=== PATIENT | male | born 1950 | race Caucasian/White ===

== ENCOUNTER 2017-11-06 20:36 | Inpatient (IN) ==
--- NOTE | 2017-11-06 20:55 | Emergency Department Note ---
Disposition Clinical Impression: Atrial fibrillation Qualifiers: Atrial fibrillation type: unspecified Qualified Code(s): I48.91 - Unspecified atrial fibrillation Disposition: Still a Patient Condition: Fair Referrals: Bubba Fall MD [Primary Care Provider] - Arrhythmia/Palpitations HPI - General Stated Complaint: Palpitations Time Seen by Provider: 11/06/17 20:44 Source: patient, family Mode of arrival: wheelchair Limitations: no limitations Nursing Notes Reviewed: Yes Vital Signs Reviewed: Yes - History of Present Illness HPI Narrative: 67-year-old who comes in complaining of irregular heartbeat and palpitations. Patient states with his last 2 surgeries he has had A. fib. Patient takes sotalol. Normally is in sinus but he will go into A. fib. Pt Subjective Complaint: "heart racing", palpitations Onset (ago): Just [employer] Duration: constant Severity: moderate Context: occurred during rest Arrhythmia History: atrial fibrillation Associated symptoms: Reports: other (Diaphoretic and patient states he normally gets diaphoretic when he goes into A. fib.) - Related Data Home Medications Medication Instructions Recorded Confirmed Armodafinil [Nuvigil] 200 mg PO BID 02/14/16 07/30/16 Aspirin Enteric Coated [Aspirin EC] 325 mg PO DAILY 02/14/16 07/30/16 Buspirone HCl [Buspar] 10 mg PO DAILY 02/14/16 07/30/16 Calcium Carbonate/Vitamin D3 1 each PO DAILY 02/14/16 07/30/16 [Calcium 600 + Vit D Tablet] Cetirizine HCl [Zyrtec] 10 mg PO DAILY 02/14/16 07/30/16 Docusate [Colace] 100 mg PO BID 02/14/16 07/30/16 Hydroxychloroquine [Plaquenuil] 200 mg PO BID 02/14/16 07/30/16 Lisinopril [Zestril] 40 mg PO DAILY 02/14/16 07/30/16 Morphine Sulfate SR (12 HR) [MS 60 mg PO Q12HR 02/14/16 07/30/16 Contin] Multivitamin [One Daily Essential] 1 each PO DAILY 02/14/16 07/30/16 Omeprazole [PriLOSEC] 20 mg PO BID 02/14/16 07/30/16 OxyCODONE/APAP 10/325 [Percocet 1 each PO Q6HR PRN 02/14/16 07/30/16 10/325 MG] Polyethylene Glycol 3350 [MiraLAX] 17 gm PO DAILY PRN 02/14/16 07/30/16 Sotalol [Betapace] 80 mg PO Q12HR 02/14/16 07/30/16 Testosterone [Androgel] 4 appl TD DAILY 02/14/16 07/30/16 Tizanidine HCl 4 mg PO Q8H PRN 02/14/16 07/30/16 hydroCHLOROthiazide 25 mg PO DAILY 02/14/16 07/30/16 [Hydrochlorothiazide] Previous Rx's Medication Instructions Recorded OxyCODONE Immed Rel [Roxicodone 5 5 - 10 mg PO Q6HR PRN #30 tablet 02/14/16 MG] Allergies Allergy/AdvReac Type Severity Reaction Status Date / Time baclofen AdvReac Nausea Verified 11/06/17 21:00 All systems ED: reviewed and negative except as stated. Constitutional: Denies: fever, chills, weakness, weight change Eyes: Denies: eye pain, eye discharge, vision change ENT ED: Denies: ear pain, throat pain, dental pain, hearing loss, epistaxis, congestion, dysphagia Cardiovascular: Reports: palpitations. Denies: chest pain, dyspnea on exertion , edema, syncope Respiratory: Denies: cough, dyspnea, wheezes, hemoptysis, stridor Gastrointestinal: Denies: abdominal pain, nausea, vomiting, diarrhea, constipation, hematemesis, melena, hematochezia Genitourinary: Denies: urgency, dysuria, frequency, hematuria Musculoskeletal: Denies: back pain, neck pain, arthralgia, myalgia Integumentary: Denies: rash, abrasion, lesions Neurological: Denies: headache, weakness, numbness, paresthesias, confusion, abnormal gait, vertigo Psychiatric: Denies: anxiety, depression, suicidal thoughts, homicidal thoughts , auditory hallucinations, visual hallucinations Endocrine: Denies: fatigue Hematological/Lymphatic: Denies: easy bleeding, easy bruising Allergic/Immunologic: Denies: facial swelling, urticaria Past Medical History - Past Medical History Medical history: Reports: arthritis, atrial fibrillation, hypertension, thyroid disease Psychiatric history: Reports: anxiety, depression - Social History Smoking Status: Former smoker Smokeless Tobacco Status: No Alcohol use: Reports: none Drug use: Reports: none Physical Exam - General Limitations: no limitations General appearance: alert, in no apparent distress - Head Head exam: atraumatic, normocephalic, normal inspection - Eye Eye exam: Present: normal appearance, PERRL, EOMI - ENT ENT exam: normal exam, normal oropharynx, mucous membranes moist - Neck Neck exam: Present: normal inspection, full ROM, trachea midline - Chest Chest inspection: Present: normal inspection, symmetric chest wall rise - Respiratory Respiratory exam: Present: normal lung sounds bilaterally - Cardiovascular Cardiovascular exam: Present: tachycardia, irregular rhythm - Abdominal Exam Abdominal exam: Present: soft, Non-Tender. Absent: tenderness, distention, guarding, rebound, rigidity - Extremities Exam Extremities exam: Present: normal inspection, full ROM. Absent: tenderness, pedal edema - Expanded Lower Extremity Exam Neurovascular/Tendon exam: Absent: motor deficit, sensory deficit, tendon deficit Gait: observed and normal - Back Exam Back exam: Present: normal inspection, full ROM. Absent: tenderness - Neurological Exam Neurological exam: Present: alert, oriented X3 - Psychiatric Psychiatric exam: Present: normal affect, normal mood - Skin Skin exam: Present: warm, dry, intact, normal color Course Vital Signs O2 Sat by Pulse Oximetry 99 11/06/17 20:40 Temperature 97 F L 11/06/17 20:57 Pulse Rate 147 11/06/17 20:57 Respiratory Rate 22 11/06/17 20:57 Blood Pressure 133/108 11/06/17 20:57 O2 Sat by Pulse Oximetry 99 11/06/17 20:57 Oxygen Delivery Oxygen Delivery Room Air Arrhythmia/Palpitations - Lab Data Lab results reviewed: Yes I reviewed the patient's lab results. Result diagrams: 11/06/17 20:50 11/06/17 20:50 Lab Results 11/06/17 11/06/17 11/06/17 Range/Units 20:50 20:50 20:50 WBC 8.9 (4.3-11.1) K/mcL RBC 6.35 H (4.19-5.50) M/mcL Hgb 19.3 H (12.9-16.9) g/dL Hct 56.3 H (37.5-50.1) % MCV 88.7 (83.0-100.0) fL MCH 30.4 (28.0-33.3) pg MCHC 34.3 (31.6-35.5) g/dL RDW 14.5 (11.5-14.5) % Plt Count 263 (140-400) K/mcL MPV 9.1 L (9.4-12.4) fL Immature Gran % 0.2 (0-4) % Seg Neutrophils % 47.9 % Lymphocytes % 39.8 % Monocytes % 9.7 % Eosinophils % 1.6 % Basophils % 0.8 % Neutrophils # 4.3 (1.6-8.9) K/mcL Lymphocytes # 3.5 (0.6-4.6) K/mcL Monocytes # 0.9 (0.0-1.3) K/mcL Eosinophils # 0.1 (0.0-0.6) K/mcL Basophils # 0.1 (0.0-0.2) K/mcL PT (9.4-12.1) Seconds INR APTT (26.0-36.0) Seconds Est GFR ( Amer) Cancelled Est GFR (Non-Af Amer) Cancelled BUN/Creatinine Ratio Cancelled Calculated Osmolality Cancelled Troponin I < 0.03 (< 0.04) ng/mL TSH 6.505 H (0.340-5.600) mcIU/mL Specimen Rejected Miscellaneous 11/06/17 Range/Units 21:30 WBC (4.3-11.1) K/mcL RBC (4.19-5.50) M/mcL Hgb (12.9-16.9) g/dL Hct (37.5-50.1) % MCV (83.0-100.0) fL MCH (28.0-33.3) pg MCHC (31.6-35.5) g/dL RDW (11.5-14.5) % Plt Count (140-400) K/mcL MPV (9.4-12.4) fL Immature Gran % (0-4) % Seg Neutrophils % % Lymphocytes % % Monocytes % % Eosinophils % % Basophils % % Neutrophils # (1.6-8.9) K/mcL Lymphocytes # (0.6-4.6) K/mcL Monocytes # (0.0-1.3) K/mcL Eosinophils # (0.0-0.6) K/mcL Basophils # (0.0-0.2) K/mcL PT 10.9 (9.4-12.1) Seconds INR 1.0 APTT 29.1 (26.0-36.0) Seconds Est GFR ( Amer) Est GFR (Non-Af Amer) BUN/Creatinine Ratio Calculated Osmolality Troponin I (< 0.04) ng/mL TSH (0.340-5.600) mcIU/mL Specimen Rejected - EKG Data EKG attestation: Yes I reviewed and interpreted this EKG. Rate: tachycardia Rhythm: A.Fib Interpretation: no acute changes S.B.ANoemiR. - S.B.A.RNoemi Recommendation: Recommendation based on pending studies, treatments, or consults S.B.A.RNoemi Report Given to: Calista Colon Repor Time: 22:01
[2017-11-06 21:05] LABS: Basophils # 0.1 K/mcL (0.0-0.2); Basophils % 0.8 %; Eosinophils # 0.1 K/mcL (0.0-0.6); Eosinophils % 1.6 %; Hemoglobin 19.3 g/dL (12.9-16.9); Immature Granulocytes % 0.2 % (0-4); Lymphocytes # 3.5 K/mcL (0.6-4.6); Lymphocytes % 39.8 %; Mean Corpuscular HGB Conc 34.3 g/dL (31.6-35.5); Mean Corpuscular Hemoglobin 30.4 pg (28.0-33.3); Mean Corpuscular Volume 88.7 fL (83.0-100.0); Mean Platelet Volume 9.1 fL (9.4-12.4); Monocytes # 0.9 K/mcL (0.0-1.3); Monocytes % 9.7 %; Neutrophils # 4.3 K/mcL (1.6-8.9); Platelet Count 263 K/mcL (140-400); Red Blood Count 6.35 M/mcL (4.19-5.50); Red Cell Distribution Width 14.5 % (11.5-14.5); Segmented Neutrophils % 47.9 %
[2017-11-06 21:07] LABS: Hematocrit 56.3 % (37.5-50.1)
[2017-11-06 21:42] LABS: Thyroid Stimulating Hormone 6.505 mcIU/mL (0.340-5.600); Troponin I < 0.03 ng/mL (< 0.04)
[2017-11-06 21:45] LABS: Prothrombin Time 10.9 Seconds (9.4-12.1)
[2017-11-06 21:47] LABS: Activated Partial Thrombo Time 29.1 Seconds (26.0-36.0)
--- NOTE | 2017-11-06 22:08 | Emergency Department Note ---
Disposition Clinical Impression: Atrial fibrillation Qualifiers: Atrial fibrillation type: unspecified Qualified Code(s): I48.91 - Unspecified atrial fibrillation Disposition: Admitted As Inpatient Condition: Undetermined Forms: ED Satisfaction Letter Arrhythmia/Palpitations HPI - General Chief Complaint: ED Arrhythmia/Palpitations Stated Complaint: Palpitations Time Seen by Provider: 11/06/17 20:44 Source: patient, family Mode of arrival: wheelchair Limitations: no limitations Nursing Notes Reviewed: Yes Vital Signs Reviewed: Yes - History of Present Illness Pt Subjective Complaint: "heart racing", palpitations Context: occurred during rest Associated symptoms: Reports: other (Diaphoretic and patient states he normally gets diaphoretic when he goes into A. fib.) - Related Data Home Medications Medication Instructions Recorded Confirmed Armodafinil [Nuvigil] 200 mg PO BID 02/14/16 07/30/16 Aspirin Enteric Coated [Aspirin EC] 325 mg PO DAILY 02/14/16 07/30/16 Buspirone HCl [Buspar] 10 mg PO DAILY 02/14/16 07/30/16 Calcium Carbonate/Vitamin D3 1 each PO DAILY 02/14/16 07/30/16 [Calcium 600 + Vit D Tablet] Cetirizine HCl [Zyrtec] 10 mg PO DAILY 02/14/16 07/30/16 Docusate [Colace] 100 mg PO BID 02/14/16 07/30/16 Hydroxychloroquine [Plaquenuil] 200 mg PO BID 02/14/16 07/30/16 Lisinopril [Zestril] 40 mg PO DAILY 02/14/16 07/30/16 Morphine Sulfate SR (12 HR) [MS 60 mg PO Q12HR 02/14/16 07/30/16 Contin] Multivitamin [One Daily Essential] 1 each PO DAILY 02/14/16 07/30/16 Omeprazole [PriLOSEC] 20 mg PO BID 02/14/16 07/30/16 OxyCODONE/APAP 10/325 [Percocet 1 each PO Q6HR PRN 02/14/16 07/30/16 10/325 MG] Polyethylene Glycol 3350 [MiraLAX] 17 gm PO DAILY PRN 02/14/16 07/30/16 Sotalol [Betapace] 80 mg PO Q12HR 02/14/16 07/30/16 Testosterone [Androgel] 4 appl TD DAILY 02/14/16 07/30/16 Tizanidine HCl 4 mg PO Q8H PRN 02/14/16 07/30/16 hydroCHLOROthiazide 25 mg PO DAILY 02/14/16 07/30/16 [Hydrochlorothiazide] Previous Rx's Medication Instructions Recorded OxyCODONE Immed Rel [Roxicodone 5 5 - 10 mg PO Q6HR PRN #30 tablet 02/14/16 MG] Allergies Allergy/AdvReac Type Severity Reaction Status Date / Time baclofen AdvReac Nausea Verified 11/06/17 21:00 Constitutional: Denies: fever, chills, weakness, weight change Eyes: Denies: eye pain, eye discharge, vision change ENT ED: Denies: ear pain, throat pain, dental pain, hearing loss, epistaxis, congestion, dysphagia Cardiovascular: Reports: palpitations. Denies: chest pain, dyspnea on exertion , edema, syncope Respiratory: Denies: cough, dyspnea, wheezes, hemoptysis, stridor Gastrointestinal: Denies: abdominal pain, nausea, vomiting, diarrhea, constipation, hematemesis, melena, hematochezia Genitourinary: Denies: urgency, dysuria, frequency, hematuria Musculoskeletal: Denies: back pain, neck pain, arthralgia, myalgia Integumentary: Denies: rash, abrasion, lesions Neurological: Denies: headache, weakness, numbness, paresthesias, confusion, abnormal gait, vertigo Psychiatric: Denies: anxiety, depression, suicidal thoughts, homicidal thoughts , auditory hallucinations, visual hallucinations Endocrine: Denies: fatigue Hematological/Lymphatic: Denies: easy bleeding, easy bruising Allergic/Immunologic: Denies: facial swelling, urticaria Past Medical History - Past Medical History Medical history: Reports: arthritis, atrial fibrillation, hypertension, thyroid disease Psychiatric history: Reports: anxiety, depression - Social History Smoking Status: Former smoker Smokeless Tobacco Status: No Alcohol use: Reports: none Drug use: Reports: none Physical Exam - General Limitations: no limitations General appearance: alert, in no apparent distress Course Course Narrative: Recently or from Dr. Singletary for provider shift change. Patient is a 67-year-old male with a history of A. fib who takes sotalol daily. He came to the emergency Department with what he felt was A. fib RVR complaining of palpitations. Heart rate being found greater than 140 A. fib and rhythm. Patient has been managed on a Cardizem drip without complications, he is currently pending laboratory work for basic labs sent he can be admitted to the hospitalist services. Please refer to Dr. Singletary's prior charting for previous assessments, interventions. - Reevaluation(s) Reevaluation #1: All labs have returned, spoke with hospitalist who is agreeable to take patient for A. fib RVR. Admission to Hospital services at this time. Patient continues on Cardizem drip at 5 mg an hour with heart rate ranging in the 100s. No acute change, safe for transfer to the floor. Time: 00:38 Vital Signs O2 Sat by Pulse Oximetry 99 11/06/17 20:40 Temperature 97.7 F 11/07/17 00:04 Pulse Rate 125 11/07/17 00:04 Respiratory Rate 20 11/07/17 00:04 Blood Pressure 125/92 11/07/17 00:04 O2 Sat by Pulse Oximetry 94 11/07/17 00:04 Oxygen Delivery Oxygen Delivery Room Air Arrhythmia/Palpitations - Lab Data Result diagrams: 11/06/17 20:50 11/06/17 22:00 Lab Results 11/06/17 11/06/17 11/06/17 Range/Units 20:50 20:50 20:50 WBC 8.9 (4.3-11.1) K/mcL RBC 6.35 H (4.19-5.50) M/mcL Hgb 19.3 H (12.9-16.9) g/dL Hct 56.3 H (37.5-50.1) % MCV 88.7 (83.0-100.0) fL MCH 30.4 (28.0-33.3) pg MCHC 34.3 (31.6-35.5) g/dL RDW 14.5 (11.5-14.5) % Plt Count 263 (140-400) K/mcL MPV 9.1 L (9.4-12.4) fL Immature Gran % 0.2 (0-4) % Seg Neutrophils % 47.9 % Lymphocytes % 39.8 % Monocytes % 9.7 % Eosinophils % 1.6 % Basophils % 0.8 % Neutrophils # 4.3 (1.6-8.9) K/mcL Lymphocytes # 3.5 (0.6-4.6) K/mcL Monocytes # 0.9 (0.0-1.3) K/mcL Eosinophils # 0.1 (0.0-0.6) K/mcL Basophils # 0.1 (0.0-0.2) K/mcL PT (9.4-12.1) Seconds INR APTT (26.0-36.0) Seconds Sodium Cancelled Potassium Cancelled Chloride Cancelled Carbon Dioxide Cancelled BUN Cancelled Creatinine Cancelled Est GFR ( Amer) Cancelled Est GFR (Non-Af Amer) Cancelled BUN/Creatinine Ratio Cancelled Glucose Cancelled Calculated Osmolality Cancelled Calcium Cancelled Troponin I < 0.03 (< 0.04) ng/mL TSH 6.505 H (0.340-5.600) mcIU/mL Specimen Rejected Miscellaneous 11/06/17 11/06/17 Range/Units 21:30 22:00 WBC (4.3-11.1) K/mcL RBC (4.19-5.50) M/mcL Hgb (12.9-16.9) g/dL Hct (37.5-50.1) % MCV (83.0-100.0) fL MCH (28.0-33.3) pg MCHC (31.6-35.5) g/dL RDW (11.5-14.5) % Plt Count (140-400) K/mcL MPV (9.4-12.4) fL Immature Gran % (0-4) % Seg Neutrophils % % Lymphocytes % % Monocytes % % Eosinophils % % Basophils % % Neutrophils # (1.6-8.9) K/mcL Lymphocytes # (0.6-4.6) K/mcL Monocytes # (0.0-1.3) K/mcL Eosinophils # (0.0-0.6) K/mcL Basophils # (0.0-0.2) K/mcL PT 10.9 (9.4-12.1) Seconds INR 1.0 APTT 29.1 (26.0-36.0) Seconds Sodium 137 Potassium 4.1 Chloride 104 Carbon Dioxide 23 BUN 23 Creatinine 0.89 Est GFR ( Amer) > 60 Est GFR (Non-Af Amer) > 60 BUN/Creatinine Ratio 26 Glucose 163 H Calculated Osmolality 291 Calcium 9.5 Troponin I (< 0.04) ng/mL TSH (0.340-5.600) mcIU/mL Specimen Rejected
[2017-11-06 22:24] LABS: BUN/Creatinine Ratio 26 (6-26); Blood Urea Nitrogen 23 mg/dL (8-23); Calcium 9.5 mg/dL (8.6-10.3); Carbon Dioxide 23 mEq/L (23-29); Chloride 104 mEq/L (98-107); Glucose 163 mg/dL (70-105); Osmolality,Calculated 291 (280-300); Potassium 4.1 mEq/L (3.5-5.1); Sodium 137 mEq/L (136-145); eGFR For African Americans > 60 (> 60); eGFR For Non-African Americans > 60 (> 60)
[2017-11-06] MEDS ORDERED: Acetaminophen 325 MG TABLET PO PRN (23:16)
[2017-11-06] MEDS ORDERED: Naloxone 0.4 MG/ML INJ IVP PRN ×2 (23:16)
--- NOTE | 2017-11-06 23:47 | Internal Med History&Physical ---
Date of Encounter: 11/06/17 Time of Encounter: 23:43 Internal Medicine - H&P: HPI Chief complaint: Tachycardia Admitted From: Emergency Dept Plans for Post Hospital Care: Home History of present illness: Mr. Stevenson is a 67 year old male with history of paroxysmal A. fib on sotalol and not on anticoagulation, hypertension, chronic back pain, KRYSTAL on CPAP at night, depression who presents with palpitations for 2 days or so. He says about 2 days ago he was working out in the yard and felt significant back pain which he does get at times whenever he bends the wrong way. He says he went back in sinus home and started feeling his heart rate was fast. He said he continued like that for the next 2 days on and off. Today was continuous and he has felt weak all day. He reports diaphoresis and feeling shortness of breath with that. Denies chest pain. Denies fever, chills, nausea, vomiting, blurry vision, headache, abdominal pain, urinary symptoms, diarrhea, constipation, or neurological symptoms. He went to the ED to get evaluated when he was found to be in A. fib with RVR with rate up with the 140s to 150s. He was put on a Cardizem drip. The patient tells me that he was diagnosed with A. 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 After that he changed cardiologists to be closer to home and saw Dr. Burgos about 6 months ago for first visit with the plans for follow -up visit sometime in the future. The patient tells me that he was on Coumadin at some point in the past and was taken off but he is aware why. He denies any history of bleeding. He says his anticoagulation was discussed with Dr. Burgos and was not restarted as Dr. Burgos wanted to get record from his previous supervisor printing shop before doing so. Patient was hemodynamically stable other than tachycardia in the ED. Labs were unremarkable. TSH was mildly elevated. Past Med Surg Social Fam HX - Past Medical History Medical history: arthritis, atrial fibrillation, hypertension, thyroid disease Psychiatric history: anxiety, depression - Social History Smoking Status: Former smoker Smokeless Tobacco Status: No Alcohol use: none Drug use: none Internal Medicine - H&P: Meds Armodafinil [Nuvigil] 200 mg PO BID 02/14/16 [History] Aspirin Enteric Coated [Aspirin EC] 325 mg PO DAILY 02/14/16 [History] Buspirone HCl [Buspar] 10 mg PO DAILY 02/14/16 [History] Calcium Carbonate/Vitamin D3 [Calcium 600 + Vit D Tablet] 1 each PO DAILY [History] Cetirizine HCl [Zyrtec] 10 mg PO DAILY 02/14/16 [History] Docusate [Colace] 100 mg PO BID 02/14/16 [History] Hydroxychloroquine [Plaquenuil] 200 mg PO BID 02/14/16 [History] Lisinopril [Zestril] 40 mg PO DAILY 02/14/16 [History] Morphine Sulfate SR (12 HR) [MS Contin] 60 mg PO Q12HR 02/14/16 [History] Multivitamin [One Daily Essential] 1 each PO DAILY 02/14/16 [History] Omeprazole [PriLOSEC] 20 mg PO BID 02/14/16 [History] OxyCODONE Immed Rel [Roxicodone 5 MG] 5 - 10 mg PO Q6HR PRN #30 tablet 02/14/16 [Rx] OxyCODONE/APAP 10/325 [Percocet 10/325 MG] 1 each PO Q6HR PRN 02/14/16 [History] Polyethylene Glycol 3350 [MiraLAX] 17 gm PO DAILY PRN 02/14/16 [History] Sotalol [Betapace] 80 mg PO Q12HR 02/14/16 [History] Testosterone [Androgel] 4 appl TD DAILY 02/14/16 [History] Tizanidine HCl 4 mg PO Q8H PRN 02/14/16 [History] hydroCHLOROthiazide [Hydrochlorothiazide] 25 mg PO DAILY 02/14/16 [History] 3 Allergy/AdvReac Type Severity Reaction Status Date / Time baclofen AdvReac Nausea Verified 11/06/17 21:00 All Systems PM: A 10-system review of systems was performed and is negative for pertinent findings except as documented above in the HPI. Review of systems: All systems reviewed are negative except for as mentioned above - Constitutional Vitals: Temp Pulse Resp BP Pulse Ox 97 F L 144 18 129/70 96 11/06/17 20:57 11/06/17 22:52 11/06/17 22:52 11/06/17 22:52 11/06/17 22:52 Exam: GEN: NAD HEENT: AT, NC, No cyanosis, oral mucosa is moist, No JVD Lymphatics: No lymphadenoapthy Eyes: Extrocular muscles intact, anicteric CVS: Irregular, tachycardic,. S1, S2, No m/r/g RESP: CTAB ABD: Soft, NT, ND, +BS EXT: No edema, No rashes, 2+ DP NEURO: Nonfocal, CN II-XII intact, No focal motor or sensory deficits Psych: Cooperative, Not anxious or depressed Internal Med - H&P Results - Labs CBC & Chem 7: 11/06/17 20:50 11/06/17 22:00 - Assessment and plan (1) Atrial fibrillation with RVR Current Visit: Yes Status: Acute Assessment and plan: Resume sotalol. Continue Cardizem drip for now. Wean down as tolerated based on heart rate. We will ask cardiology to see. Given elevated TSH, I will check thyroid panel. Check magnesium. Does not seem like the patient has any contraindication to being on anticoagulation. He is on aspirin currently. I will ask cardiology to see as they may have more records as to why he is not on anticoagulation and to help us out with meds optimalization for A. fib. (2) Elevated TSH Current Visit: Yes Status: Acute Assessment and plan: Check thyroid panel. TSH is mildly elevated. (3) Hypertension Current Visit: Yes Status: Acute Assessment and plan: Resume home antihypertensives Qualifiers: Hypertension type: essential hypertension Qualified Code(s): I10 - Essential (primary) hypertension (4) Chronic back pain Current Visit: Yes Status: Acute Assessment and plan: Resume home pain meds. Qualifiers: Back pain location: back pain in unspecified location Back pain laterality : unspecified Qualified Code(s): M54.9 - Dorsalgia, unspecified; G89.29 - Other chronic pain; G89.29 - Other chronic pain (5) KRYSTAL (obstructive sleep apnea) Current Visit: Yes Status: Acute Assessment and plan: CPAP. (6) DVT prophylaxis Current Visit: Yes Status: Acute Assessment and plan: Heparin subcutaneous for now. - Time Spent With Patient Total time spent is greater than 50% in coordination of care (as documented) at patient's floor/unit and/or counseling patient:
[2017-11-07] MEDS ORDERED: *HR* Metoprolol 5 MG/5 ML VIAL IVP ONE (00:34)
[2017-11-07 03:32] LABS: Basophils # 0.1 K/mcL (0.0-0.2); Basophils % 0.6 %; Eosinophils # 0.1 K/mcL (0.0-0.6); Eosinophils % 0.8 %; Hematocrit 52.6 % (37.5-50.1); Hemoglobin 18.4 g/dL (12.9-16.9); Immature Granulocytes % 0.5 % (0-4); Lymphocytes # 2.8 K/mcL (0.6-4.6); Lymphocytes % 33.8 %; Mean Corpuscular Volume 88.6 fL (83.0-100.0); Monocytes # 0.7 K/mcL (0.0-1.3); Monocytes % 8.9 %; Neutrophils # 4.6 K/mcL (1.6-8.9); Platelet Count 242 K/mcL (140-400); Red Blood Count 5.94 M/mcL (4.19-5.50); Red Cell Distribution Width 13.4 % (11.5-14.5); Segmented Neutrophils % 55.4 %
[2017-11-07 03:50] LABS: BUN/Creatinine Ratio 29 (6-26); Blood Urea Nitrogen 23 mg/dL (8-23); Calcium 9.5 mg/dL (8.6-10.3); Carbon Dioxide 25 mEq/L (23-29); Chloride 104 mEq/L (98-107); Glucose 143 mg/dL (70-105); Magnesium 1.9 mg/dL (1.6-2.6); Osmolality,Calculated 290 (280-300); Potassium 3.8 mEq/L (3.5-5.1); Sodium 137 mEq/L (136-145); eGFR For African Americans > 60 (> 60); eGFR For Non-African Americans > 60 (> 60)
[2017-11-07 04:14] LABS: Triiodothyronine (T3) Free 3.78 pg/mL (2.50-3.90); Triiodothyronine (T3) Total 1.06 ng/mL (0.87-1.78)
[2017-11-07] MEDS: *HR* Morphine Sulfate SR (12 HR) 60 MG TABLET.ER PO SCH ×2 (06:00→17:28)
[2017-11-07] MEDS: *HR* Heparin 5,000 UNIT/ML VIAL SQ SCH ×3 (06:00→20:42)
[2017-11-07] MEDS: Lisinopril 20 MG TABLET PO SCH (08:38)
[2017-11-07] MEDS: Multivit/Ca/Min/Fe/FA 1 TAB TABLET PO SCH (08:42)
[2017-11-07] MEDS: Aspirin Enteric Coated 325 MG Tablet PO SCH (08:42)
[2017-11-07] MEDS: Loratadine 10 MG TABLET PO SCH (08:43)
[2017-11-07] MEDS ORDERED: hydroCHLOROthiazide 25 MG TABLET PO SCH (09:00)
[2017-11-07] MEDS ORDERED: *HR* OxyCODONE/APAP 10/325 TABLET PO SCH (09:00)
[2017-11-07 12:03] LABS: Estimated Average Glucose 126 mg/dl
--- NOTE | 2017-11-07 12:34 | Internal Med Progress Note ---
<Zak Ruano - Last Filed: 11/07/17 12:10> Date of Encounter: 11/07/17 Time of Encounter: 12:10 - Assessment and plan (1) Atrial fibrillation with RVR Current Visit: Yes Status: Acute Assessment and plan: paroxysmal a-fib with RVR most likely triggered by dehydration owing to strenuous outdoor work, sweating, and recent addition of Lasix for pedal edema in addition to usual use of HCTZ 25 mg b.i.d. [id number] = 2; Repeat A1c 6.0%. Pt denies h/o CAD. No h/o CVA/TIA. No h/o vascular disease. previously on coumadin for short time period. recent eCW note by dr. felder states will consider reinstating anticoagulant therapy if a fib recurs. otherwise on aspirin and Sotalol. - Begin gentle IV hydration in addition to cardiac diet - suspect elevated H/H due to hemoconcentration; recheck CBC in a.m. - hold all diuretics including Lasix and HCTZ - Resume sotalol. - Continue Cardizem drip for now. - TSH initially elevated; other thyroid hormones within normal limits - Mg++ normal - He is on aspirin currently; will revisit anticoagulation prior to discharge - will need to follow with cardiology closely upon discharge; briefly discussed case with cardiology PHOTO FINISHER who agrees with plan. (2) Hypertension Current Visit: Yes Status: Chronic Assessment and plan: Holding diuretics for now; will monitor. Qualifiers: Hypertension type: essential hypertension Qualified Code(s): I10 - Essential (primary) hypertension (3) Chronic back pain Current Visit: Yes Status: Acute Assessment and plan: Resume home pain meds. Qualifiers: Back pain location: back pain in unspecified location Back pain laterality : unspecified Qualified Code(s): M54.9 - Dorsalgia, unspecified; G89.29 - Other chronic pain; G89.29 - Other chronic pain (4) KRYSTAL (obstructive sleep apnea) Current Visit: Yes Status: Acute Assessment and plan: Okay to use home CPAP. (5) Elevated TSH Current Visit: Yes Status: Acute Assessment and plan: As above (6) DVT prophylaxis Current Visit: Yes Status: Acute Assessment and plan: SQ H - Time Spent With Patient Total time spent is greater than 50% in coordination of care (as documented) at patient's floor/unit and/or counseling patient: - Subjective Interval history: Reviewed HPI with patient. Patient was working in the yard on when he states he has sweating profusely due to the exertion and began to notice that his heart was beating faster than usual. Patient states that the rapid heartbeat and associated fatigue persisted through yesterday at which time he decided to be evaluated in the emergency department. Patient also tells me that on 10/26/17, he was given an additional medication, Lasix 20 mg daily, for pedal edema. This is in addition to HCTZ which he takes 25 mg twice daily. Patient states feels fine this a.m. and has no acute complaints. - Constitutional Vitals: Temp Pulse Resp BP Pulse Ox 97.8 F 90 15 106/83 92 11/07/17 11:41 11/07/17 11:41 11/07/17 11:41 11/07/17 11:41 11/07/17 11:41 CONSTITUTIONAL: Alert and oriented X3, well-nourished, well appearing, in no apparent distress HEAD: Normocephalic; atraumatic. EYES: PER, no scleral icterus, no drainage, no conjunctival injection NOSE: The nose is normal in appearance without rhinorrhea Oropharynx: pink/moist RESP: NRD without use of accessory musculature, CTA b/l with no wheezes/rales/ rhonchi CARD: irregularly iregular rhythm, without murmurs, rubs, or gallop ABD: grossly normal, soft, non-tender, no guarding/distention/rigidity SKIN: normal appearance, no pallor/diaphoresis,mottling,jaundice,cyanosis EXT: DP/Rad pulses 2+ and symmetrical; trace symmetrical pedal edema PSYCH: appropriate mood/affect Internal Medicine: Result - Labs CBC & Chem 7: 11/07/17 03:18 11/07/17 03:18 Labs: Short CBC 11/07/17 Range/Units 03:18 WBC 8.4 (4.3-11.1) K/mcL Hgb 18.4 H (12.9-16.9) g/dL Hct 52.6 H (37.5-50.1) % Plt Count 242 (140-400) K/mcL Neutrophils # 4.6 (1.6-8.9) K/mcL BMP 11/07/17 03:18 Sodium 137 Potassium 3.8 Chloride 104 Carbon Dioxide 25 BUN 23 Creatinine 0.79 Glucose 143 H Calcium 9.5 - ABG Interpretation ABG results: PT/INR, D-dimer PT 10.9 Seconds (9.4-12.1) 11/06/17 21:30 - VTE Documentation of Mechanical Device: Intermittent pneumatic compression device Consult Discharge Plan - Plan Referrals: Bubba Fall MD [Primary Care Provider] - <Alex Mason H - Last Filed: 11/07/17 14:15> Date of Encounter: 11/07/17 - Assessment and plan (1) Atrial fibrillation with RVR Current Visit: Yes Status: Acute (2) Hypertension Current Visit: Yes Status: Chronic Qualifiers: Hypertension type: essential hypertension Qualified Code(s): I10 - Essential (primary) hypertension (3) Chronic back pain Current Visit: Yes Status: Acute Qualifiers: Back pain location: back pain in unspecified location Back pain laterality : unspecified Qualified Code(s): M54.9 - Dorsalgia, unspecified; G89.29 - Other chronic pain; G89.29 - Other chronic pain (4) KRYSTAL (obstructive sleep apnea) Current Visit: Yes Status: Acute (5) Elevated TSH Current Visit: Yes Status: Acute (6) DVT prophylaxis Current Visit: Yes Status: Acute - Time Spent With Patient Total time spent is greater than 50% in coordination of care (as documented) at patient's floor/unit and/or counseling patient: - Constitutional Vitals: Temp Pulse Resp BP Pulse Ox 97.8 F 90 15 106/83 92 11/07/17 11:41 11/07/17 11:41 11/07/17 11:41 11/07/17 11:41 11/07/17 11:41 Internal Medicine: Result - Labs CBC & Chem 7: 11/07/17 03:18 11/07/17 03:18 Labs: Short CBC 11/07/17 Range/Units 03:18 WBC 8.4 (4.3-11.1) K/mcL Hgb 18.4 H (12.9-16.9) g/dL Hct 52.6 H (37.5-50.1) % Plt Count 242 (140-400) K/mcL Neutrophils # 4.6 (1.6-8.9) K/mcL BMP 11/07/17 03:18 Sodium 137 Potassium 3.8 Chloride 104 Carbon Dioxide 25 BUN 23 Creatinine 0.79 Glucose 143 H Calcium 9.5 - ABG Interpretation ABG results: PT/INR, D-dimer PT 10.9 Seconds (9.4-12.1) 11/06/17 21:30 - Attending Attestation A. fib with RVR likely secondary to dehydration Stop hydrochlorothiazide, hold Lasix, start IV fluids Consider cardiology consult if not improving Continue sotalol and continue Cardizem drip Hypothyroidism, TSH is 6.5 Start 25 g of thyroxine I examined this patient and my medical decision-making was reviewed with the Resident Physician. I agree with the documented findings, disposition and treatment plan as described except to the extent set forth below.
[2017-11-07] MEDS: 0.9 % Sodium Chloride 1,000 ML IVC SCH (13:22)
[2017-11-07] MEDS: *HR* OxyCODONE/APAP 10/325 TABLET PO PRN ×2 (14:14→20:44)
[2017-11-08] MEDS: 0.9 % Sodium Chloride 1,000 ML IVC SCH ×2 (01:39→14:41)
[2017-11-08] MEDS: Levothyroxine 25 MCG TABLET PO SCH (05:20)
[2017-11-08] MEDS: *HR* Morphine Sulfate SR (12 HR) 60 MG TABLET.ER PO SCH ×2 (05:20→17:28)
[2017-11-08] MEDS: *HR* Heparin 5,000 UNIT/ML VIAL SQ SCH (05:21)
[2017-11-08 05:49] LABS: BUN/Creatinine Ratio 32 (6-26); Blood Urea Nitrogen 24 mg/dL (8-23); Calcium 8.9 mg/dL (8.6-10.3); Carbon Dioxide 25 mEq/L (23-29); Chloride 106 mEq/L (98-107); Glucose 129 mg/dL (70-105); Osmolality,Calculated 290 (280-300); Potassium 3.8 mEq/L (3.5-5.1); Sodium 137 mEq/L (136-145); eGFR For African Americans > 60 (> 60); eGFR For Non-African Americans > 60 (> 60)
[2017-11-08 06:22] LABS: Basophils # 0.1 K/mcL (0.0-0.2); Basophils % 0.7 %; Eosinophils # 0.1 K/mcL (0.0-0.6); Eosinophils % 1.8 %; Hematocrit 47.9 % (37.5-50.1); Hemoglobin 16.5 g/dL (12.9-16.9); Immature Granulocytes % 0.3 % (0-4); Lymphocytes # 2.8 K/mcL (0.6-4.6); Lymphocytes % 38.3 %; Mean Corpuscular HGB Conc 34.4 g/dL (31.6-35.5); Mean Corpuscular Hemoglobin 30.9 pg (28.0-33.3); Mean Corpuscular Volume 89.7 fL (83.0-100.0); Mean Platelet Volume 9.3 fL (9.4-12.4); Monocytes # 0.8 K/mcL (0.0-1.3); Monocytes % 11.1 %; Neutrophils # 3.5 K/mcL (1.6-8.9); Platelet Count 225 K/mcL (140-400); Red Blood Count 5.34 M/mcL (4.19-5.50); Red Cell Distribution Width 13.5 % (11.5-14.5); Segmented Neutrophils % 47.8 %
[2017-11-08] MEDS: Loratadine 10 MG TABLET PO SCH (08:25)
[2017-11-08] MEDS: Aspirin Enteric Coated 325 MG Tablet PO SCH (08:25)
[2017-11-08] MEDS: Multivit/Ca/Min/Fe/FA 1 TAB TABLET PO SCH (08:26)
[2017-11-08] MEDS: *HR* OxyCODONE/APAP 10/325 TABLET PO PRN ×2 (08:32→14:41)
--- NOTE | 2017-11-08 09:05 | Internal Med Progress Note ---
<Zak Ruano - Last Filed: 11/08/17 09:20> Date of Encounter: 11/08/17 Time of Encounter: 09:03 - Assessment and plan (1) Atrial fibrillation with RVR Current Visit: Yes Status: Acute Assessment and plan: paroxysmal a-fib with RVR most likely triggered by dehydration owing to strenuous outdoor work, sweating, and recent addition of Lasix for pedal edema in addition to usual use of HCTZ 25 mg b.i.d. [id number] = 2; Repeat A1c 6.0%. Pt denies h/o CAD. No h/o CVA/TIA. No h/o vascular disease. previously on coumadin for short time period. recent eCW note by dr. felder states will consider reinstating anticoagulant therapy if a fib recurs. otherwise on aspirin and Sotalol. - Given patient's reversion from NSR to irregularly irregular rhythm with tachycardia, will contact cardiology team to have [id number] with patient today - updated echo pending - Continue gentle IV of - hemoconcentration appears to result this morning - continue to hold all diuretics including Lasix and HCTZ - Resume sotalol. - Continue Cardizem drip for now. - TSH initially elevated; other thyroid hormones within normal limits; started yesterday on Synthroid 25 g daily - He is on aspirin currently; will revisit anticoagulation prior to discharge - will need to follow with cardiology closely upon discharge (2) Hypertension Current Visit: Yes Status: Chronic Assessment and plan: Holding diuretics for now; will monitor. Qualifiers: Hypertension type: essential hypertension Qualified Code(s): I10 - Essential (primary) hypertension (3) Chronic back pain Current Visit: Yes Status: Acute Assessment and plan: Continue home pain meds. Qualifiers: Back pain location: back pain in unspecified location Back pain laterality : unspecified Qualified Code(s): M54.9 - Dorsalgia, unspecified; G89.29 - Other chronic pain; G89.29 - Other chronic pain (4) KRYSTAL (obstructive sleep apnea) Current Visit: Yes Status: Acute Assessment and plan: Okay to use home CPAP. (5) Elevated TSH Current Visit: Yes Status: Acute Assessment and plan: As above (6) DVT prophylaxis Current Visit: Yes Status: Acute Assessment and plan: SQ H - Time Spent With Patient Total time spent is greater than 50% in coordination of care (as documented) at patient's floor/unit and/or counseling patient: - Subjective Interval history: Patient continues to have no acute complaints. Patient did convert to normal sinus rhythm this morning. Attempted to titrate Cardizem drip off during which time patient reverted to irregularly irregular rhythm with pulse rate and low 100s. Again, patient has no subjective complaints at this time. Cardiology called for proper consult. - Constitutional Vitals: Temp Pulse Resp BP Pulse Ox 97.4 F L 87 16 102/79 96 11/08/17 08:11 11/08/17 08:11 11/08/17 08:11 11/08/17 08:11 11/08/17 08:11 stable exam from prior CONSTITUTIONAL: Alert and oriented X3, well-nourished, well appearing, in no apparent distress, seated at bedside chair HEAD: Normocephalic; atraumatic. EYES: PER, no scleral icterus, no drainage, no conjunctival injection NOSE: The nose is normal in appearance without rhinorrhea Oropharynx: pink/moist RESP: NRD without use of accessory musculature, CTA b/l with no wheezes/rales/ rhonchi CARD: irregularly iregular rhythm, pulse rate low 100s, without murmurs, rubs, or gallop ABD: grossly normal, soft, non-tender, no guarding/distention/rigidity SKIN: normal appearance, no pallor/diaphoresis,mottling,jaundice,cyanosis EXT: Rad pulses 2+ and symmetrical; trace symmetrical pedal edema PSYCH: appropriate mood/affect Internal Medicine: Result - Labs CBC & Chem 7: 11/08/17 05:53 11/08/17 05:15 Labs: Short CBC 11/08/17 Range/Units 05:53 WBC 7.4 (4.3-11.1) K/mcL Hgb 16.5 D (12.9-16.9) g/dL Hct 47.9 (37.5-50.1) % Plt Count 225 (140-400) K/mcL Neutrophils # 3.5 (1.6-8.9) K/mcL BMP 11/08/17 05:15 Sodium 137 Potassium 3.8 Chloride 106 Carbon Dioxide 25 BUN 24 H Creatinine 0.76 Glucose 129 H Calcium 8.9 - ABG Interpretation ABG results: PT/INR, D-dimer PT 10.9 Seconds (9.4-12.1) 11/06/17 21:30 - VTE Documentation of Mechanical Device: Intermittent pneumatic compression device Consult Discharge Plan - Plan Referrals: Bubba Fall MD [Primary Care Provider] - <AnahigilbertAlex allen - Last Filed: 11/08/17 14:36> Date of Encounter: 11/08/17 - Assessment and plan (1) Atrial fibrillation with RVR Current Visit: Yes Status: Acute (2) Hypertension Current Visit: Yes Status: Chronic Qualifiers: Hypertension type: essential hypertension Qualified Code(s): I10 - Essential (primary) hypertension (3) Chronic back pain Current Visit: Yes Status: Acute Qualifiers: Back pain location: back pain in unspecified location Back pain laterality : unspecified Qualified Code(s): M54.9 - Dorsalgia, unspecified; G89.29 - Other chronic pain; G89.29 - Other chronic pain (4) KRYSTAL (obstructive sleep apnea) Current Visit: Yes Status: Acute (5) Elevated TSH Current Visit: Yes Status: Acute (6) DVT prophylaxis Current Visit: Yes Status: Acute - Time Spent With Patient Total time spent is greater than 50% in coordination of care (as documented) at patient's floor/unit and/or counseling patient: - Constitutional Vitals: Temp Pulse Resp BP Pulse Ox 97.7 F 88 19 117/81 96 11/08/17 12:04 11/08/17 12:04 11/08/17 12:04 11/08/17 12:04 11/08/17 12:04 Internal Medicine: Result - Labs CBC & Chem 7: 11/08/17 05:53 11/08/17 05:15 Labs: Short CBC 11/08/17 Range/Units 05:53 WBC 7.4 (4.3-11.1) K/mcL Hgb 16.5 D (12.9-16.9) g/dL Hct 47.9 (37.5-50.1) % Plt Count 225 (140-400) K/mcL Neutrophils # 3.5 (1.6-8.9) K/mcL BMP 11/08/17 05:15 Sodium 137 Potassium 3.8 Chloride 106 Carbon Dioxide 25 BUN 24 H Creatinine 0.76 Glucose 129 H Calcium 8.9 - ABG Interpretation ABG results: PT/INR, D-dimer PT 10.9 Seconds (9.4-12.1) 11/06/17 21:30 - Attending Attestation Rosmery fib with RVR likely secondary to dehydration Stopped hydrochlorothiazide, hold Lasix, continue IV fluids Continue sotalol and continue Cardizem drip Hypothyroidism, TSH is 6.5 Started 25 g of thyroxine cardiology planning cardioversion for tomorrow I examined this patient and my medical decision-making was reviewed with the Resident Physician. I agree with the documented findings, disposition and treatment plan as described except to the extent set forth below.
--- NOTE | 2017-11-08 10:48 | Cardiology Consult Note ---
Date of Encounter: 11/08/17 Time of Encounter: 09:30 Assessment and Plan (1) Atrial fibrillation Current Visit: Yes Status: Chronic Per cardiology: -Known history of PAF, had after surgery several years ago. Previous on anticoagulation, not currently. On sotalol 80mg BID in outpatient setting. -[id number] score 2 (age, HTN). Recommend anticoagulation. Patient and family agreeable. Denies bleeding or blood loss. -TTE pending. -Currently a.fib, HR controlled. -Currently on cardizem drip at 10mg/hour and sotalol 80mg BID. -Pending TTE, will mann check NOAC. -Will make NPO after midnight for possible KLAUS/DCCV in am -Can consider increasing sotalol dose, will decide pending TTE and AC. Qualifiers: Atrial fibrillation type: paroxysmal Qualified Code(s): I48.0 - Paroxysmal atrial fibrillation Discussion w patient/family: The assessment and plan as outlined above was discussed with the patient and/or family members who expressed understanding and agreement. All questions were answered. Thank you for involving us in the care of your patient. Please call with any questions. Discussed and reviewed with . History of Present Illness Consult date: 11/08/17 Requesting physician: Zak Ruano Consult reason: afib Chief complaint: "heart racing" History of present illness: Mr. Stevenson is a 67 year old male with a relevant past medical history of HTN, PAF, depression, anxiety, KRYSTAL compiant with CPAP, iron deficiency anemia. Patient presented to [facility] with complaints of racing heart. Patient states symptoms started Wednesday. Denies current symptoms. Patient reports shortness of breath baseline. Reports compliance with CPAP. Past Med Surg Social Fam HX - Past Medical History Attestation: Yes The following information was validated with the patient. Source: patient, old records reviewed, obtained from family Medical history: arthritis, atrial fibrillation, hypertension, thyroid disease Psychiatric history: anxiety, depression - Social History Smoking Status: Former smoker Smokeless Tobacco Status: No Alcohol use: none Drug use: none - Family History Brother Hx Family Cardiac Disorders: Yes (unknown heart condition) Medications and Allergies Armodafinil [Nuvigil] 200 mg PO BID 02/14/16 [History] Aspirin Enteric Coated [Aspirin EC] 325 mg PO DAILY 02/14/16 [History] Buspirone HCl [Buspar] 10 mg PO DAILY 02/14/16 [History] Calcium Carbonate/Vitamin D3 [Calcium 600 + Vit D Tablet] 1 each PO DAILY [History] Cetirizine HCl [Zyrtec] 10 mg PO DAILY 02/14/16 [History] Docusate [Colace] 100 mg PO BID 02/14/16 [History] Hydroxychloroquine [Plaquenuil] 200 mg PO BID 02/14/16 [History] Lisinopril [Zestril] 40 mg PO DAILY 02/14/16 [History] Morphine Sulfate SR (12 HR) [MS Contin] 60 mg PO Q12HR 02/14/16 [History] Multivitamin [One Daily Essential] 1 each PO DAILY 02/14/16 [History] Omeprazole [PriLOSEC] 20 mg PO BID 02/14/16 [History] OxyCODONE/APAP 10/325 [Percocet 10/325 MG] 1 each PO Q6HR PRN 02/14/16 [History] Polyethylene Glycol 3350 [MiraLAX] 17 gm PO DAILY PRN 02/14/16 [History] Sotalol [Betapace] 80 mg PO Q12HR 02/14/16 [History] Testosterone [Androgel] 4 appl TD DAILY 02/14/16 [History] Tizanidine HCl 4 mg PO Q8H PRN 02/14/16 [History] hydroCHLOROthiazide [Hydrochlorothiazide] 25 mg PO BID 02/14/16 [History] Citalopram Hydrobromide [Citalopram HBr] 40 mg PO DAILY 11/07/17 [History] Furosemide [Lasix] 20 mg PO DAILY 11/07/17 [History] 3 Allergy/AdvReac Type Severity Reaction Status Date / Time baclofen AdvReac Nausea Verified 11/07/17 10:54 All Systems Review: The remainder of the systems were reviewed and are negative - Cardiovascular Cardiovascular: as per HPI, rapid heart rate Physical Examination Vital Signs, Last 4 Hours Temp Pulse Resp BP Pulse Ox 11/08/17 09:43 90 106/76 11/08/17 08:11 97.4 F L 87 16 102/79 96 General: Conversant, No Apparent Distress HEENT: Atraumatic, Normocephaly, Mucus Membranes Moist Neck: No JVD, Normal carotid pulses Cardiac: Normal S1 and S2, No Murmur, Other (Irregularly irregular) Lungs: Normal Breath Sounds, No Wheeze, Rales, Rhonchi Neuro: Alert and responsive, No focal deficits noted Abdomen: Soft, Non-Tender Skin: No rashes noted on visualized skin Musculoskeletal: No Chest Wall Tenderness Extremities: No Clubbing, No Cyanosis, No Edema, Normal Pulses Results 11/08/17 05:53 11/08/17 05:15 Lab Results Active Medications Acetaminophen (Tylenol) 650 mg PO Q6H PRN PRN Reason: Mild Pain/Fever Stop: 05/08/18 23:17 Aspirin (Aspirin Ec) 325 mg PO DAILY [facility] Stop: 05/09/18 09:01 Last Admin: 11/08/17 08:25 Dose: 325 mg Buspirone HCl (Buspar) 10 mg PO QPM [facility] Stop: 05/09/18 18:01 Last Admin: 11/07/17 17:28 Dose: 10 mg Calcium Carbonate (Tums) 500 mg PO DAILY [facility] Stop: 05/09/18 09:01 Last Admin: 11/08/17 08:26 Dose: 500 mg Citalopram Hydrobromide (Celexa) 40 mg PO DAILY [facility] Stop: 05/09/18 09:01 Last Admin: 11/08/17 08:25 Dose: 40 mg Docusate Sodium (Colace) 100 mg PO BID [facility] PRN Reason: Protocol Stop: 05/09/18 09:01 Last Admin: 11/08/17 08:25 Dose: 100 mg Heparin Sodium (Porcine) (Heparin) 5,000 unit SQ Q8HCO [facility] Stop: 05/09/18 06:01 Last Admin: 11/08/17 05:21 Dose: 5,000 unit Hydroxychloroquine Sulfate (Plaquenuil) 200 mg PO BID [facility] Stop: 05/09/18 09:01 Last Admin: 11/08/17 08:26 Dose: 200 mg Diltiazem HCl 125 mg/ Sodium (Chloride) 125 mls @ 5 mls/hr IVC .Q24H [facility] PRN Reason: 5 MG/HR Stop: 05/08/18 21:01 Last Infusion: 11/08/17 08:28 Dose: 10 mg/hr, 10 mls/hr Sodium Chloride (0.9 % Sodium Chloride) 1,000 mls @ 75 mls/hr IVC .[id number] [facility] Stop: 05/09/18 12:31 Last Admin: 11/08/17 01:39 Dose: 75 mls/hr Levothyroxine Sodium (Synthroid) 25 mcg PO DAILY@0630 [facility] Stop: 05/10/18 06:31 Last Admin: 11/08/17 05:20 Dose: 25 mcg Lisinopril (Zestril) 40 mg PO DAILY [facility] Stop: 05/09/18 09:01 Last Admin: 11/07/17 08:38 Dose: Not Given Loratadine (Claritin) 10 mg PO DAILY [facility] Stop: 05/09/18 09:01 Last Admin: 11/08/17 08:25 Dose: 10 mg Morphine Sulfate (Ms Contin) 60 mg PO Q12HR [facility] Stop: 05/09/18 06:01 Last Admin: 11/08/17 05:20 Dose: 60 mg Multivitamins/Calcium (Thera M Plus) 1 tab PO DAILY [facility] Stop: 05/09/18 09:01 Last Admin: 11/08/17 08:26 Dose: 1 tab Naloxone HCl (Narcan) 0.4 mg IVP Q2MIN PRN PRN Reason: SEE COMMENTS Stop: 05/08/18 23:17 Naloxone HCl (Narcan) 0.4 mg IVP Q2MIN PRN PRN Reason: SEE COMMENTS Stop: 05/08/18 23:17 Omeprazole (Prilosec) 20 mg PO BID [facility] PRN Reason: Protocol Stop: 05/09/18 09:01 Last Admin: 11/08/17 08:26 Dose: 20 mg Oxycodone/Acetaminophen (Percocet 10/325) 1 each PO QID PRN PRN Reason: mild to moderate pain Stop: 05/09/18 13:01 Last Admin: 11/08/17 08:32 Dose: 1 each Polyethylene Glycol (Miralax) 17 gm PO DAILY PRN PRN Reason: Constipation Stop: 05/09/18 00:42 Sotalol HCl (Betapace) 80 mg PO Q12HR [facility] Stop: 05/09/18 06:01 Last Admin: 11/08/17 05:21 Dose: 80 mg Laboratory Tests 11/06/17 11/07/17 11/07/17 20:50 03:18 03:18 Hgb 18.4 H Potassium Creatinine Magnesium 1.9 Troponin I < 0.03 TSH 6.505 H 11/08/17 11/08/17 05:15 05:53 Hgb 16.5 D Potassium 3.8 Creatinine 0.76 Magnesium Troponin I TSH - Imaging and Cardiology Chest Xray: report reviewed Echo: pending, report reviewed - EKG Interpretation EKG results cardiology: personally reviewed (ECG with a.fib, HR 96.), other ( Telemetry reviewed with average HR previous 12 hours noted to be 95, a.fib. PVCs noted.) Consult Discharge Plan - Plan Referrals: Bubba Fall MD [Primary Care Provider] -
[2017-11-08] MEDS: Lisinopril 20 MG TABLET PO SCH (11:55)
[2017-11-08] MEDS: Apixaban 5 MG TABLET PO SCH ×2 (11:57→21:28)
--- NOTE | 2017-11-08 16:18 | Electrocardiograph Report ---
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
[2017-11-09] MEDS: 0.9 % Sodium Chloride 1,000 ML IVC SCH (01:46)
[2017-11-09 04:36] LABS: Basophils % 0.4 %; Eosinophils # 0.1 K/mcL (0.0-0.6); Eosinophils % 1.3 %; Hematocrit 43.1 % (37.5-50.1); Immature Granulocytes % 0.3 % (0-4); Lymphocytes % 30.4 %; Mean Corpuscular HGB Conc 33.6 g/dL (31.6-35.5); Mean Corpuscular Hemoglobin 30.5 pg (28.0-33.3); Mean Corpuscular Volume 90.5 fL (83.0-100.0); Mean Platelet Volume 9.2 fL (9.4-12.4); Monocytes # 0.7 K/mcL (0.0-1.3); Neutrophils # 3.9 K/mcL (1.6-8.9); Platelet Count 183 K/mcL (140-400); Red Blood Count 4.76 M/mcL (4.19-5.50); Red Cell Distribution Width 13.5 % (11.5-14.5); Segmented Neutrophils % 57.6 %
[2017-11-09 04:37] LABS: Hemoglobin 14.5 g/dL (12.9-16.9)
[2017-11-09 04:55] LABS: BUN/Creatinine Ratio 24 (6-26); Blood Urea Nitrogen 17 mg/dL (8-23); Carbon Dioxide 25 mEq/L (23-29); Chloride 106 mEq/L (98-107); Glucose 123 mg/dL (70-105); Osmolality,Calculated 289 (280-300); Potassium 3.6 mEq/L (3.5-5.1); Sodium 138 mEq/L (136-145); eGFR For African Americans > 60 (> 60); eGFR For Non-African Americans > 60 (> 60)
[2017-11-09] MEDS: Levothyroxine 25 MCG TABLET PO SCH (05:23)
[2017-11-09] MEDS: *HR* Morphine Sulfate SR (12 HR) 60 MG TABLET.ER PO SCH ×2 (05:23→16:59)
--- NOTE | 2017-11-09 07:51 | Internal Med Progress Note ---
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 [id number] = 2; Repeat A1c 6.0%. Pt denies h/o CAD. No h/o CVA/TIA. No h/o vascular disease. previously on coumadin for short time period. recent eCW note by dr. felder states will consider reinstating anticoagulant therapy if a fib recurs. otherwise on aspirin and Sotalol. - Cont AF-RVR with rate low 100s - updated echo pending - Continue gentle IVF - continue to hold all diuretics including Lasix and HCTZ - Continue Cardizem drip for now. - TSH initially elevated; other thyroid hormones within normal limits; started yesterday on Synthroid 25 g daily - All plans per cardio team as below, will follow. Per cardio note 11/08/17: "Long discussion regarding atrial fibrillation. Risks, benefits, and alternatives to anticoagulation discussed. Patient agreeable to proceed. Up to this point, patient has not been on anticoagulation. Recommend continue rate control, hold sotalol for now, and proceed with KLAUS-guided cardioversion in a.m. After cardioversion, consider resuming sotalol at 120 mg BID to help maintain sinus rhythm. " (2) Hypertension Current Visit: Yes Status: Chronic Assessment and plan: Holding diuretics for now; will monitor. Stable. Qualifiers: Hypertension type: essential hypertension Qualified Code(s): I10 - Essential (primary) hypertension (3) Chronic back pain Current Visit: Yes Status: Acute Assessment and plan: Continue home pain meds. Qualifiers: Back pain location: back pain in unspecified location Back pain laterality : unspecified Qualified Code(s): M54.9 - Dorsalgia, unspecified; G89.29 - Other chronic pain; G89.29 - Other chronic pain (4) KRYSTAL (obstructive sleep apnea) Current Visit: Yes Status: Acute Assessment and plan: Okay to use home CPAP. (5) Elevated TSH Current Visit: Yes Status: Acute Assessment and plan: As above (6) DVT prophylaxis Current Visit: Yes Status: Acute Assessment and plan: On Eliquis - Time Spent With Patient Total time spent is greater than 50% in coordination of care (as documented) at patient's floor/unit and/or counseling patient: - Subjective Interval history: Pt nervous today regarding cardio plan of cardioversion. Questions answered. Pt comfortable otherwise with no new symptoms. Continues to be mildly tachycardic. - Constitutional Vitals: Temp Pulse Resp BP Pulse Ox 98 F 104 16 126/90 95 11/09/17 06:33 11/09/17 06:33 11/09/17 06:33 11/09/17 06:33 11/09/17 06:33 stable exam from prior CONSTITUTIONAL: Alert and oriented X3, well-nourished, well appearing, in no apparent distress, seated at bedside chair HEAD: Normocephalic; atraumatic. EYES: PER, no scleral icterus, no drainage, no conjunctival injection NOSE: The nose is normal in appearance without rhinorrhea Oropharynx: pink/moist RESP: NRD without use of accessory musculature, CTA b/l with no wheezes/rales/ rhonchi CARD: irregularly irregular rhythm, pulse rate low 100s, without murmurs, rubs, or gallop ABD: grossly normal, soft, non-tender, no guarding/distention/rigidity SKIN: normal appearance, no pallor/diaphoresis,mottling,jaundice,cyanosis EXT: Rad pulses 2+ and symmetrical; trace symmetrical pedal edema PSYCH: anxious affect Internal Medicine: Result - Labs CBC & Chem 7: 11/09/17 03:47 11/09/17 03:47 Labs: Short CBC 11/09/17 Range/Units 03:47 WBC 6.7 (4.3-11.1) K/mcL Hgb 14.5 D (12.9-16.9) g/dL Hct 43.1 (37.5-50.1) % Plt Count 183 (140-400) K/mcL Neutrophils # 3.9 (1.6-8.9) K/mcL BMP 11/09/17 03:47 Sodium 138 Potassium 3.6 Chloride 106 Carbon Dioxide 25 BUN 17 Creatinine 0.70 Glucose 123 H Calcium 9.0 - ABG Interpretation ABG results: PT/INR, D-dimer PT 10.9 Seconds (9.4-12.1) 11/06/17 21:30 - VTE Documentation of Mechanical Device: Intermittent pneumatic compression device Consult Discharge Plan - Plan Referrals: Bubba Fall MD [Primary Care Provider] - 11/17/17 9:45 am Prescriptions: Apixaban [Eliquis] 5 mg PO BID #60 tablet <Ace Fernando Ye - Last Filed: 11/09/17 16:07> Date of Encounter: 11/09/17 - Assessment and plan (1) Atrial fibrillation with RVR Current Visit: Yes Status: Acute (2) Hypertension Current Visit: Yes Status: Chronic Qualifiers: Hypertension type: essential hypertension Qualified Code(s): I10 - Essential (primary) hypertension (3) Chronic back pain Current Visit: Yes Status: Acute Qualifiers: Back pain location: back pain in unspecified location Back pain laterality : unspecified Qualified Code(s): M54.9 - Dorsalgia, unspecified; G89.29 - Other chronic pain; G89.29 - Other chronic pain (4) KRYSTAL (obstructive sleep apnea) Current Visit: Yes Status: Acute (5) Elevated TSH Current Visit: Yes Status: Acute (6) DVT prophylaxis Current Visit: Yes Status: Acute - Time Spent With Patient Total time spent is greater than 50% in coordination of care (as documented) at patient's floor/unit and/or counseling patient: - Constitutional Vitals: Temp Pulse Resp BP Pulse Ox 97.4 F L 138 14 153/93 96 11/09/17 13:42 11/09/17 13:42 11/09/17 13:42 11/09/17 13:42 11/09/17 13:42 Internal Medicine: Result - Labs CBC & Chem 7: 11/09/17 03:47 11/09/17 03:47 Labs: Short CBC 11/09/17 Range/Units 03:47 WBC 6.7 (4.3-11.1) K/mcL Hgb 14.5 D (12.9-16.9) g/dL Hct 43.1 (37.5-50.1) % Plt Count 183 (140-400) K/mcL Neutrophils # 3.9 (1.6-8.9) K/mcL BMP 11/09/17 03:47 Sodium 138 Potassium 3.6 Chloride 106 Carbon Dioxide 25 BUN 17 Creatinine 0.70 Glucose 123 H Calcium 9.0 - ABG Interpretation ABG results: PT/INR, D-dimer PT 10.9 Seconds (9.4-12.1) 11/06/17 21:30 - Impressions Impressions Echocardiogram 11/07/17 18:35 Impressions: LVEF 55-60%. Indeterminate diastolic function. RV is dilated. Function appears normal. Mild tricuspid regurgitation. Borderline evidence for pulmonary hypertension. Left Ventricular Wall Motion: Rest Echo Findings The mid inferior lateral and basal inferior lateral flores were not visualized. All other wall segments showed normal motion. Findings: Study Quality * Technically challenging due to body habitus. ECG Findings * Atrial fibrillation. Left Ventricle * LVEF 55-60%. * Indeterminate diastolic function. * Normal LV chamber size, wall thickness and function. Right Ventricle * RV is dilated. Function appears normal. Left Atrium * Moderately dilated left atrium. Right Atrium * Normal right atrial size. Mitral Valve * Mild mitral annular calcification * Normal mitral valve structure. * No mitral stenosis. * Trace mitral regurgitation. Aortic Valve * No aortic regurgitation. * Aortic valve not well visualized. * No aortic stenosis. Tricuspid Valve * Tricuspid valve not well visualized. * Mild tricuspid regurgitation. Pulmonic Valve * Pulmonic valve is not well visualized. * No pulmonic stenosis. * No pulmonic regurgitation. Pulmonary Artery * Pulmonary artery not well visualized. Aorta * Normally sized aortic root. Pericardium * There is no pericardial effusion present. Interatrial Septum * No evidence of PFO by color Doppler. Transesophageal w/Cardioversion 11/09/17 08:10 Impressions: Successful DCCV of atrial fibrillation to normal sinus rhythm. Intracardiac thrombus not identified on KLAUS. Medication Given: Time Medication Dose Units Route 14:05 Versed 2 mg IV 14:05 Fentanyl 25 mcg IV 14:10 Versed 1 mg IV 14:10 Fentanyl 25 mcg IV 14:15 Versed 2 mg IV Findings: ECG Findings * Atrial fibrillation. Left Atrium * No thrombus present. * The LA appendage flow velocity is normal. No thrombus present. Right Atrium * No thrombus present. Pulmonary Veins * There is no pulmonary vein thrombus. - Attending Attestation I examined this patient and my medical decision-making was reviewed with the Resident Physician. I agree with the documented findings, disposition and treatment plan as described except to the extent set forth below. 67-year-old male with atrial fibrillation, morbid obesity, obstructive sleep apnea was admitted for management of atrial fibrillation with rapid ventricular response. No new complaints. Physical examination unremarkable. Awaiting KLAUS cardioversion during time of evaluation. already on eliquis for anticoagulation, continue the same. Per cardiology, patient to be started also Sotalol after cardioversion. Monitor telemetry and EKGs. Continue other management Rest of details as in the resident physicians documentation.
[2017-11-09] MEDS: Lisinopril 20 MG TABLET PO SCH (08:48)
[2017-11-09] MEDS: Aspirin Enteric Coated 81 MG Tablet PO SCH (08:53)
[2017-11-09] MEDS: *HR* OxyCODONE/APAP 10/325 TABLET PO PRN ×3 (08:54→19:43)
[2017-11-09] MEDS: Multivit/Ca/Min/Fe/FA 1 TAB TABLET PO SCH (08:54)
[2017-11-09] MEDS: Apixaban 5 MG TABLET PO SCH ×2 (08:54→21:51)
[2017-11-09] MEDS: Loratadine 10 MG TABLET PO SCH (08:54)
--- NOTE | 2017-11-09 10:28 | Event Note ---
Date of Encounter: 11/09/17 Time of Encounter: 09:00 - Cardiology Event Note PLan for KLAUS guided DCCV. Risks versus benefits of KLUAS/DCCV Explained to patient and family. Patient states understanding and agreeable to proceed.Further recommendations pending KLAUS/DCCV.
[2017-11-09] MEDS ORDERED: 0.9 % Sodium Chloride 500 ML IVC ONE (13:22)
[2017-11-09] MEDS ORDERED: Tetracaine/Benzocaine/Butamben 200MG/SPRAY (100SPY/BOT) MM ONE (13:22)
[2017-11-09] MEDS: *HR* Midazolam HCl 5 MG/5 ML VIAL IVP PRN ×3 (14:05→14:15)
[2017-11-09] MEDS: *HR* FentaNYL (PF) 100 MCG/2 ML VIAL IVP PRN ×2 (14:05→14:10)
--- NOTE | 2017-11-09 15:11 | Event Note ---
Date of Encounter: 11/09/17 Time of Encounter: 15:10 - Cardiology Event Note Discussed with , sucessful KLAUS/DCCV. Discussed and reviewed with , will start sotalol 120mg BID. Will check daily ECGs. Will continue to monitor.
--- NOTE | 2017-11-09 16:01 | Electrocardiograph Report ---
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
--- NOTE | 2017-11-09 16:24 | Electrocardiograph Report ---
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
[2017-11-10 05:03] LABS: Basophils % 0.7 %; Eosinophils # 0.1 K/mcL (0.0-0.6); Eosinophils % 1.7 %; Hematocrit 43.9 % (37.5-50.1); Hemoglobin 14.9 g/dL (12.9-16.9); Immature Granulocytes % 0.3 % (0-4); Lymphocytes # 1.7 K/mcL (0.6-4.6); Lymphocytes % 29.2 %; Mean Corpuscular HGB Conc 33.9 g/dL (31.6-35.5); Mean Corpuscular Hemoglobin 30.7 pg (28.0-33.3); Mean Corpuscular Volume 90.3 fL (83.0-100.0); Mean Platelet Volume 9.2 fL (9.4-12.4); Monocytes # 0.8 K/mcL (0.0-1.3); Monocytes % 13.6 %; Neutrophils # 3.1 K/mcL (1.6-8.9); Platelet Count 188 K/mcL (140-400); Red Blood Count 4.86 M/mcL (4.19-5.50); Red Cell Distribution Width 13.6 % (11.5-14.5); Segmented Neutrophils % 54.5 %
[2017-11-10] MEDS: *HR* OxyCODONE/APAP 10/325 TABLET PO PRN ×3 (05:06→21:12)
[2017-11-10 05:23] LABS: BUN/Creatinine Ratio 23 (6-26); Blood Urea Nitrogen 19 mg/dL (8-23); Carbon Dioxide 25 mEq/L (23-29); Chloride 107 mEq/L (98-107); Glucose 120 mg/dL (70-105); Osmolality,Calculated 295 (280-300); Potassium 3.9 mEq/L (3.5-5.1); Sodium 141 mEq/L (136-145); eGFR For African Americans > 60 (> 60); eGFR For Non-African Americans > 60 (> 60)
[2017-11-10] MEDS: Levothyroxine 25 MCG TABLET PO SCH (06:00)
[2017-11-10] MEDS: *HR* Morphine Sulfate SR (12 HR) 60 MG TABLET.ER PO SCH ×2 (06:00→19:34)
--- NOTE | 2017-11-10 10:46 | Cardiology Progress Note ---
Date of Encounter: 11/10/17 Time of Encounter: 08:30 Assessment and Plan (1) Atrial fibrillation Current Visit: Yes Status: Chronic Per cardiology: -Admitted in a.fib RVR. -S/p KLAUS/DCCV yesteday with successful conversion to SR. -Started on sotalol 120mg BID. S/p 2 total doses of increased sotalol. -Baseline ECG 11/09/17 post cardioversion with SR, HR 79. QT 387, QTc 421ms. -ECG 11/10/17 with SR, HR 68. QT 439, QTc 457ms. -Average HR 67, SR. -TTE with LVEF 55-60%, RV dilated with normal function, mild TR, borderline PH, no segmental wall motion abnormalities. -ON eliquis 5mg BID, educated importance of not missing any doses of eliquis, especially for first 30 days post cardioversion. States understanding. -Will monitor daily ECGs. -Continue telemetry. -Will continue to monitor. Qualifiers: Atrial fibrillation type: paroxysmal Qualified Code(s): I48.0 - Paroxysmal atrial fibrillation Discussion w patient/family: The assessment and plan as outlined above was discussed with the patient and/or family members who expressed understanding and agreement. All questions were answered. Thank you for involving us in the care of your patient. Please call with any questions. Discussed and reviewed with . Subjective Principal diagnosis: a.fib RVR Interval history: Patient is s/p KLAUS/DCCV yesteday. Denies complaints. Objective Vital Signs, Last 4 Hours Temp Pulse Resp BP Pulse Ox 11/10/17 08:14 97.8 F 64 16 131/81 95 General: Conversant, No Apparent Distress HEENT: Atraumatic, Normocephaly, Mucus Membranes Moist Neck: No JVD, Normal carotid pulses Cardiac: Reg Rate and Rhythm, Normal S1 and S2, No Murmur Lungs: Normal Breath Sounds, No Wheeze, Rales, Rhonchi Neuro: Alert and responsive, No focal deficits noted Abdomen: Soft, Non-Tender Skin: No rashes noted on visualized skin Musculoskeletal: No Chest Wall Tenderness Extremities: No Clubbing, No Cyanosis, No Edema, Normal Pulses Results 11/10/17 04:21 11/10/17 04:21 Lab Results Impressions Echocardiogram 11/07/17 18:35 Impressions: LVEF 55-60%. Indeterminate diastolic function. RV is dilated. Function appears normal. Mild tricuspid regurgitation. Borderline evidence for pulmonary hypertension. Left Ventricular Wall Motion: Rest Echo Findings The mid inferior lateral and basal inferior lateral flores were not visualized. All other wall segments showed normal motion. Findings: Study Quality * Technically challenging due to body habitus. ECG Findings * Atrial fibrillation. Left Ventricle * LVEF 55-60%. * Indeterminate diastolic function. * Normal LV chamber size, wall thickness and function. Right Ventricle * RV is dilated. Function appears normal. Left Atrium * Moderately dilated left atrium. Right Atrium * Normal right atrial size. Mitral Valve * Mild mitral annular calcification * Normal mitral valve structure. * No mitral stenosis. * Trace mitral regurgitation. Aortic Valve * No aortic regurgitation. * Aortic valve not well visualized. * No aortic stenosis. Tricuspid Valve * Tricuspid valve not well visualized. * Mild tricuspid regurgitation. Pulmonic Valve * Pulmonic valve is not well visualized. * No pulmonic stenosis. * No pulmonic regurgitation. Pulmonary Artery * Pulmonary artery not well visualized. Aorta * Normally sized aortic root. Pericardium * There is no pericardial effusion present. Interatrial Septum * No evidence of PFO by color Doppler. Transesophageal w/Cardioversion 11/09/17 08:10 Impressions: Successful DCCV of atrial fibrillation to normal sinus rhythm. Intracardiac thrombus not identified on KLAUS. Medication Given: Time Medication Dose Units Route 14:05 Versed 2 mg IV 14:05 Fentanyl 25 mcg IV 14:10 Versed 1 mg IV 14:10 Fentanyl 25 mcg IV 14:15 Versed 2 mg IV Findings: ECG Findings * Atrial fibrillation. Left Atrium * No thrombus present. * The LA appendage flow velocity is normal. No thrombus present. Right Atrium * No thrombus present. Pulmonary Veins * There is no pulmonary vein thrombus. Active Medications Acetaminophen (Tylenol) 650 mg PO Q6H PRN PRN Reason: Mild Pain/Fever Stop: 05/08/18 23:17 Apixaban (Eliquis) 5 mg PO BID [facility] Stop: 05/10/18 11:31 Last Admin: 11/09/17 21:51 Dose: 5 mg Aspirin (Aspirin Ec) 81 mg PO DAILY [facility] Stop: 05/11/18 09:01 Last Admin: 11/09/17 08:53 Dose: 81 mg Buspirone HCl (Buspar) 10 mg PO QPM [facility] Stop: 05/09/18 18:01 Last Admin: 11/09/17 16:59 Dose: 10 mg Calcium Carbonate (Tums) 500 mg PO DAILY [facility] Stop: 05/09/18 09:01 Last Admin: 11/09/17 08:53 Dose: 500 mg Citalopram Hydrobromide (Celexa) 40 mg PO DAILY [facility] Stop: 05/09/18 09:01 Last Admin: 11/09/17 08:54 Dose: 40 mg Docusate Sodium (Colace) 100 mg PO BID [facility] PRN Reason: Protocol Stop: 05/09/18 09:01 Last Admin: 11/09/17 21:51 Dose: 100 mg Hydroxychloroquine Sulfate (Plaquenuil) 200 mg PO BID [facility] Stop: 05/09/18 09:01 Last Admin: 11/09/17 21:51 Dose: 200 mg Diltiazem HCl 125 mg/ Sodium (Chloride) 125 mls @ 5 mls/hr IVC .Q24H [facility] PRN Reason: 5 MG/HR Stop: 05/08/18 21:01 Last Infusion: 11/09/17 13:40 Dose: Infused Levothyroxine Sodium (Synthroid) 25 mcg PO DAILY@0630 [facility] Stop: 05/10/18 06:31 Last Admin: 11/10/17 06:00 Dose: 25 mcg Lisinopril (Zestril) 40 mg PO DAILY [facility] Stop: 05/09/18 09:01 Last Admin: 11/09/17 08:48 Dose: Not Given Loratadine (Claritin) 10 mg PO DAILY [facility] Stop: 05/09/18 09:01 Last Admin: 11/09/17 08:54 Dose: 10 mg Morphine Sulfate (Ms Contin) 60 mg PO Q12HR [facility] Stop: 05/09/18 06:01 Last Admin: 11/10/17 06:00 Dose: 60 mg Multivitamins/Calcium (Thera M Plus) 1 tab PO DAILY [facility] Stop: 05/09/18 09:01 Last Admin: 11/09/17 08:54 Dose: 1 tab Naloxone HCl (Narcan) 0.4 mg IVP Q2MIN PRN PRN Reason: SEE COMMENTS Stop: 05/08/18 23:17 Naloxone HCl (Narcan) 0.4 mg IVP Q2MIN PRN PRN Reason: SEE COMMENTS Stop: 05/08/18 23:17 Omeprazole (Prilosec) 20 mg PO BID [facility] PRN Reason: Protocol Stop: 05/09/18 09:01 Last Admin: 11/09/17 21:51 Dose: 20 mg Oxycodone/Acetaminophen (Percocet 10/325) 1 each PO QID PRN PRN Reason: mild to moderate pain Stop: 05/09/18 13:01 Last Admin: 11/10/17 05:06 Dose: 1 each Polyethylene Glycol (Miralax) 17 gm PO DAILY PRN PRN Reason: Constipation Stop: 05/09/18 00:42 Sotalol HCl (Betapace) 120 mg PO Q12HR [facility] Stop: 05/11/18 18:01 Last Admin: 11/10/17 06:00 Dose: 120 mg Laboratory Tests 11/10/17 11/10/17 04:21 04:21 Hgb 14.9 Potassium 3.9 Creatinine 0.82 - Imaging and Cardiology Chest Xray: report reviewed Echo: report reviewed - EKG Interpretation EKG results cardiology: personally reviewed (ECG today with SR, HR 68. QT 439/ QTc 457ms.), other (Telemetry reviewed with average HR previous 12 hours noted to be 67, SR. PVCs and PACs noted.) - VTE Documentation of Mechanical Device: Intermittent pneumatic compression device Consult Discharge Plan - Plan Referrals: Bubba Fall MD [Primary Care Provider] - 11/17/17 9:45 am Prescriptions: Apixaban [Eliquis] 5 mg PO BID #60 tablet
--- NOTE | 2017-11-10 11:56 | Internal Med Progress Note ---
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 [id number] = 2; Repeat A1c 6.0%. Pt denies h/o CAD. No h/o CVA/TIA. No h/o vascular disease. Previously on coumadin for short time period. recent eCW note by dr. felder states will consider reinstating anticoagulant therapy if a fib recurs. otherwise on aspirin and Sotalol. KLAUS-guided CV performed with pt sustaining NSR. Cardio team reinstated Sotalol. - NSR with rate in the 60 to 70 range - updated echo finalized - Continue gentle IVF - continue to hold all diuretics including Lasix and HCTZ for now - TSH initially elevated; continue on Synthroid 25 g daily - All plans per cardio team, will follow. ECHO: 11/07/17 LVEF 55-60%. Indeterminate diastolic function. RV is dilated. Function appears normal. Mild tricuspid regurgitation. Borderline evidence for pulmonary hypertension. (2) Hypertension Current Visit: Yes Status: Chronic Assessment and plan: Holding diuretics for now; will monitor. Stable. Qualifiers: Hypertension type: essential hypertension Qualified Code(s): I10 - Essential (primary) hypertension (3) Chronic back pain Current Visit: Yes Status: Acute Assessment and plan: Continue home pain meds. Qualifiers: Back pain location: back pain in unspecified location Back pain laterality : unspecified Qualified Code(s): M54.9 - Dorsalgia, unspecified; G89.29 - Other chronic pain; G89.29 - Other chronic pain (4) KRYSTAL (obstructive sleep apnea) Current Visit: Yes Status: Acute Assessment and plan: Okay to use home CPAP. (5) Elevated TSH Current Visit: Yes Status: Acute Assessment and plan: As above (6) DVT prophylaxis Current Visit: Yes Status: Acute Assessment and plan: On Eliquis - Time Spent With Patient Total time spent is greater than 50% in coordination of care (as documented) at patient's floor/unit and/or counseling patient: - Subjective Interval history: Comfortable at bedside table. TTE guided cardioversion performed yesterday and patient has been normal sinus rhythm since. Patient has no acute complaints or symptoms. Cardiology team started patient back on sotalol and will need monitoring for 5 full doses. If no further incidents, likely discharge tomorrow night or Wednesday morning. - Constitutional Vitals: Temp Pulse Resp BP Pulse Ox 97.8 F 64 16 131/81 95 11/10/17 08:14 11/10/17 08:14 11/10/17 08:14 11/10/17 08:14 11/10/17 08:14 CONSTITUTIONAL: Alert and oriented X3, well-nourished, well appearing, in no apparent distress, seated at bedside chair HEAD: Normocephalic; atraumatic. EYES: PER, no scleral icterus, no drainage, no conjunctival injection NOSE: The nose is normal in appearance without rhinorrhea Oropharynx: pink/moist RESP: NRD without use of accessory musculature, CTA b/l with no wheezes/rales/ rhonchi CARD: RRR, without murmurs, rubs, or gallop ABD: grossly normal, soft, non-tender, no guarding/distention/rigidity SKIN: normal appearance, no pallor/diaphoresis,mottling,jaundice,cyanosis EXT: Rad pulses 2+ and symmetrical; trace symmetrical pedal edema PSYCH: normal mood and affect Internal Medicine: Result - Labs CBC & Chem 7: 11/10/17 04:21 11/10/17 04:21 Labs: Short CBC 11/10/17 Range/Units 04:21 WBC 5.8 (4.3-11.1) K/mcL Hgb 14.9 (12.9-16.9) g/dL Hct 43.9 (37.5-50.1) % Plt Count 188 (140-400) K/mcL Neutrophils # 3.1 (1.6-8.9) K/mcL BMP 11/10/17 04:21 Sodium 141 Potassium 3.9 Chloride 107 Carbon Dioxide 25 BUN 19 Creatinine 0.82 Glucose 120 H Calcium 9.0 - ABG Interpretation ABG results: PT/INR, D-dimer PT 10.9 Seconds (9.4-12.1) 11/06/17 21:30 - Impressions Impressions Echocardiogram 11/07/17 18:35 Impressions: LVEF 55-60%. Indeterminate diastolic function. RV is dilated. Function appears normal. Mild tricuspid regurgitation. Borderline evidence for pulmonary hypertension. Left Ventricular Wall Motion: Rest Echo Findings The mid inferior lateral and basal inferior lateral flores were not visualized. All other wall segments showed normal motion. Findings: Study Quality * Technically challenging due to body habitus. ECG Findings * Atrial fibrillation. Left Ventricle * LVEF 55-60%. * Indeterminate diastolic function. * Normal LV chamber size, wall thickness and function. Right Ventricle * RV is dilated. Function appears normal. Left Atrium * Moderately dilated left atrium. Right Atrium * Normal right atrial size. Mitral Valve * Mild mitral annular calcification * Normal mitral valve structure. * No mitral stenosis. * Trace mitral regurgitation. Aortic Valve * No aortic regurgitation. * Aortic valve not well visualized. * No aortic stenosis. Tricuspid Valve * Tricuspid valve not well visualized. * Mild tricuspid regurgitation. Pulmonic Valve * Pulmonic valve is not well visualized. * No pulmonic stenosis. * No pulmonic regurgitation. Pulmonary Artery * Pulmonary artery not well visualized. Aorta * Normally sized aortic root. Pericardium * There is no pericardial effusion present. Interatrial Septum * No evidence of PFO by color Doppler. Transesophageal w/Cardioversion 11/09/17 08:10 Impressions: Successful DCCV of atrial fibrillation to normal sinus rhythm. Intracardiac thrombus not identified on KLAUS. Medication Given: Time Medication Dose Units Route 14:05 Versed 2 mg IV 14:05 Fentanyl 25 mcg IV 14:10 Versed 1 mg IV 14:10 Fentanyl 25 mcg IV 14:15 Versed 2 mg IV Findings: ECG Findings * Atrial fibrillation. Left Atrium * No thrombus present. * The LA appendage flow velocity is normal. No thrombus present. Right Atrium * No thrombus present. Pulmonary Veins * There is no pulmonary vein thrombus. - VTE Documentation of Mechanical Device: Intermittent pneumatic compression device Consult Discharge Plan - Plan Referrals: Bubba Fall MD [Primary Care Provider] - 11/17/17 9:45 am Prescriptions: Apixaban [Eliquis] 5 mg PO BID #60 tablet <Ace Fernando - Last Filed: 11/10/17 12:59> Date of Encounter: 11/10/17 - Assessment and plan (1) Atrial fibrillation with RVR Current Visit: Yes Status: Acute (2) Hypertension Current Visit: Yes Status: Chronic Qualifiers: Hypertension type: essential hypertension Qualified Code(s): I10 - Essential (primary) hypertension (3) Chronic back pain Current Visit: Yes Status: Acute Qualifiers: Back pain location: back pain in unspecified location Back pain laterality : unspecified Qualified Code(s): M54.9 - Dorsalgia, unspecified; G89.29 - Other chronic pain; G89.29 - Other chronic pain (4) KRYSTAL (obstructive sleep apnea) Current Visit: Yes Status: Acute (5) Elevated TSH Current Visit: Yes Status: Acute (6) DVT prophylaxis Current Visit: Yes Status: Acute - Time Spent With Patient Total time spent is greater than 50% in coordination of care (as documented) at patient's floor/unit and/or counseling patient: - Constitutional Vitals: Temp Pulse Resp BP Pulse Ox 97.9 F 62 16 139/73 95 11/10/17 12:05 11/10/17 12:05 11/10/17 12:05 11/10/17 12:05 11/10/17 12:05 Internal Medicine: Result - Labs CBC & Chem 7: 11/10/17 04:21 11/10/17 04:21 Labs: Short CBC 11/10/17 Range/Units 04:21 WBC 5.8 (4.3-11.1) K/mcL Hgb 14.9 (12.9-16.9) g/dL Hct 43.9 (37.5-50.1) % Plt Count 188 (140-400) K/mcL Neutrophils # 3.1 (1.6-8.9) K/mcL BMP 11/10/17 04:21 Sodium 141 Potassium 3.9 Chloride 107 Carbon Dioxide 25 BUN 19 Creatinine 0.82 Glucose 120 H Calcium 9.0 - ABG Interpretation ABG results: PT/INR, D-dimer PT 10.9 Seconds (9.4-12.1) 11/06/17 21:30 - Impressions Impressions Transesophageal w/Cardioversion 11/09/17 08:10 Impressions: Successful DCCV of atrial fibrillation to normal sinus rhythm. Intracardiac thrombus not identified on KLAUS. Medication Given: Time Medication Dose Units Route 14:05 Versed 2 mg IV 14:05 Fentanyl 25 mcg IV 14:10 Versed 1 mg IV 14:10 Fentanyl 25 mcg IV 14:15 Versed 2 mg IV Findings: ECG Findings * Atrial fibrillation. Left Atrium * No thrombus present. * The LA appendage flow velocity is normal. No thrombus present. Right Atrium * No thrombus present. Pulmonary Veins * There is no pulmonary vein thrombus. - Attending Attestation I examined this patient and my medical decision-making was reviewed with the Resident Physician. I agree with the documented findings, disposition and treatment plan as described except to the extent set forth below. 67-year-old male with atrial fibrillation, morbid obesity, obstructive sleep apnea was admitted for management of atrial fibrillation with rapid ventricular response. Seen and evaluated at the bedside, sitting out of bed to chair, No new complaints. Physical examination unremarkable. Labs and Imaging reviewed EKGs unremarkable, already on eliquis for anticoagulation, continue the same, continue sotalol. Clinically stable, Continue other management Rest of details as in the resident physicians documentation.
--- NOTE | 2017-11-10 12:23 | Electrocardiograph Report ---
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
--- NOTE | 2017-11-10 12:26 | Event Note ---
Date of Encounter: 11/10/17 Time of Encounter: 12:25 - Cardiology Event Note Spoke with pharmacist on 2NEsyed mann check noted to be $3.50/month.
[2017-11-10] MEDS: Lisinopril 20 MG TABLET PO SCH (12:27)
[2017-11-10] MEDS: Apixaban 5 MG TABLET PO SCH ×2 (12:27→21:12)
[2017-11-10] MEDS: Aspirin Enteric Coated 81 MG Tablet PO SCH (12:27)
[2017-11-10] MEDS: Multivit/Ca/Min/Fe/FA 1 TAB TABLET PO SCH (12:28)
[2017-11-10] MEDS: Loratadine 10 MG TABLET PO SCH (12:28)
--- NOTE | 2017-11-10 12:35 | Electrocardiograph Report ---
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
[2017-11-11 04:34] LABS: Basophils % 0.5 %; Eosinophils # 0.1 K/mcL (0.0-0.6); Eosinophils % 1.7 %; Hemoglobin 13.6 g/dL (12.9-16.9); Immature Granulocytes % 0.3 % (0-4); Lymphocytes # 2.2 K/mcL (0.6-4.6); Lymphocytes % 36.5 %; Mean Corpuscular HGB Conc 33.2 g/dL (31.6-35.5); Mean Corpuscular Hemoglobin 30.1 pg (28.0-33.3); Mean Corpuscular Volume 90.7 fL (83.0-100.0); Mean Platelet Volume 9.2 fL (9.4-12.4); Monocytes # 0.7 K/mcL (0.0-1.3); Monocytes % 11.9 %; Neutrophils # 2.9 K/mcL (1.6-8.9); Platelet Count 182 K/mcL (140-400); Red Blood Count 4.52 M/mcL (4.19-5.50); Red Cell Distribution Width 13.5 % (11.5-14.5); Segmented Neutrophils % 49.1 %
[2017-11-11 05:02] LABS: BUN/Creatinine Ratio 26 (6-26); Blood Urea Nitrogen 20 mg/dL (8-23); Calcium 8.6 mg/dL (8.6-10.3); Carbon Dioxide 24 mEq/L (23-29); Chloride 107 mEq/L (98-107); Glucose 111 mg/dL (70-105); Osmolality,Calculated 289 (280-300); Sodium 138 mEq/L (136-145); eGFR For African Americans > 60 (> 60); eGFR For Non-African Americans > 60 (> 60)
[2017-11-11] MEDS: *HR* Morphine Sulfate SR (12 HR) 60 MG TABLET.ER PO SCH ×2 (05:37→17:45)
[2017-11-11] MEDS: Levothyroxine 25 MCG TABLET PO SCH (05:38)
[2017-11-11] MEDS: Aspirin Enteric Coated 81 MG Tablet PO SCH (09:20)
[2017-11-11] MEDS: Lisinopril 20 MG TABLET PO SCH (09:20)
[2017-11-11] MEDS: Apixaban 5 MG TABLET PO SCH ×2 (09:20→19:08)
[2017-11-11] MEDS: Loratadine 10 MG TABLET PO SCH (09:20)
[2017-11-11] MEDS: Multivit/Ca/Min/Fe/FA 1 TAB TABLET PO SCH (09:20)
[2017-11-11] MEDS: *HR* OxyCODONE/APAP 10/325 TABLET PO PRN (09:27)
--- NOTE | 2017-11-11 10:03 | Cardiology Progress Note ---
Date of Encounter: 11/11/17 Time of Encounter: 09:00 Assessment and Plan (1) Atrial fibrillation Current Visit: Yes Status: Chronic Per cardiology: -Admitted in a.fib RVR. -S/p KLAUS/DCCV with successful conversion to SR and then sotalol was increased to 120 mg BID. -S/p 4 increased doses. Tolerating well. 5th dose to be given at 1700. -Baseline ECG 11/09/17 post cardioversion with SR, HR 79. QT 387, QTc 421ms. -ECG 11/10/17 with SR, HR 68. QT 439, QTc 457ms. -ECG 11/11/17 with SR, HR 58. Qt/QTc 444/441, QRS 91. -Average HR 61, SR. -TTE with LVEF 55-60%, RV dilated with normal function, mild TR, borderline PH, no segmental wall motion abnormalities. -ON eliquis 5mg BID, educated importance of not missing any doses of eliquis, especially for first 30 days post cardioversion. States understanding. Zhong check completed and will cost $3.50 a month. Ok to discharge from cardiology standpoint if EKG shows NSR with normal QT/QTc after fifth dose today. Cardiology will sign off if no change. We will coordinate out-pt f/u in 2-3 weeks. Qualifiers: Atrial fibrillation type: paroxysmal Qualified Code(s): I48.0 - Paroxysmal atrial fibrillation Discussion w patient/family: The assessment and plan as outlined above was discussed with the patient and/or family members who expressed understanding and agreement. All questions were answered. Thank you for involving us in the care of your patient. Please call with any questions. Subjective Principal diagnosis: a.fib RVR Interval history: No complaints. Sitting in chair talking to . Remains in NSR. Objective Vital Signs, Last 4 Hours Temp Pulse Resp BP Pulse Ox 11/11/17 07:56 97.5 F L 60 17 142/73 97 General: Conversant, No Apparent Distress HEENT: Atraumatic, Normocephaly, Mucus Membranes Moist Neck: No JVD, Normal carotid pulses Cardiac: Reg Rate and Rhythm, Normal S1 and S2, No Murmur Lungs: Normal Breath Sounds, No Wheeze, Rales, Rhonchi Neuro: Alert and responsive, No focal deficits noted Abdomen: Soft, Non-Tender Skin: No rashes noted on visualized skin Musculoskeletal: No Chest Wall Tenderness Extremities: No Clubbing, No Cyanosis, Normal Pulses, Other (Trace BLE edema) Results 11/11/17 03:57 11/11/17 03:57 Lab Results 11/11/17 11/11/17 03:57 03:57 WBC 6.0 Hgb 13.6 Hct 41.0 Plt Count 182 Sodium 138 Potassium 4.0 Chloride 107 Carbon Dioxide 24 BUN 20 Creatinine 0.76 Glucose 111 H Calcium 8.6 - EKG Interpretation EKG results cardiology: personally reviewed - VTE Documentation of Mechanical Device: Intermittent pneumatic compression device Consult Discharge Plan - Plan Referrals: Bubba Fall MD [Primary Care Provider] - 11/17/17 9:45 am Prescriptions: Apixaban [Eliquis] 5 mg PO BID #60 tablet
--- NOTE | 2017-11-11 11:03 | Discharge Summary ---
<Zak Ruano - Last Filed: 11/11/17 13:07> Orders not resulted at time of discharge: Pending orders 11/12/17 04:00 BMP [Basic Metabolic Panel] AM 0400 Complete Blood Count [HEME] AM 0400 11/12/17 06:00 ECG 12 lead ECG [ECG] AM 0600 Date of Encounter: 11/11/17 Time of Encounter: 10:00 - Discharge Diagnosis (1) Atrial fibrillation with RVR Priority: Primary Status: Acute Assessment and Plan: NSR s/p KLAUS-guided cardioversion. New dose of Sotalol and has been monitored with no EKG changes. On Eliquis upon discharge. (2) Hypertension Priority: Secondary Status: Chronic Qualifiers: Hypertension type: essential hypertension Qualified Code(s): I10 - Essential (primary) hypertension (3) Chronic back pain Priority: Secondary Status: Acute Qualifiers: Back pain location: back pain in unspecified location Back pain laterality : unspecified Qualified Code(s): M54.9 - Dorsalgia, unspecified; G89.29 - Other chronic pain; G89.29 - Other chronic pain (4) KRYSTAL (obstructive sleep apnea) Priority: Secondary Status: Acute (5) Elevated TSH Priority: Primary Status: Acute Assessment and Plan: Cont Synthroid 25mcg and f/u with PCP for further recommendations Hospital course: Mr. Stevenson is a 67 year old male with history of PAF who is admitted for any recurrence of AF/RVR. [employer], experienced 2 days of palpitations and fatigue. States previous to onset of symptoms, was working outdoors and sweating significantly. Had recently been started on Lasix 20mg PO daily for pedal edema in addition to usual HCTZ 25mg BID. Initially RVR with heart rate 147. Pt was also polycythemic and had elevated TSH & A1c of 6.0%; labs otherwise unremarkable. Started on 25mcg Synthroid. Clinically dehydrated on 1st day of admission. Held diuretics until date of discharge. Started on cardizem drip in ED and hydrated with IVF. Initially converted to NSR with Cardizem drip, but reverted when down-titrated to 10/hr. Repeat ECHO demonstrated LVEF 55-60%, indeterminate diastolic function, dilated RV, mild tricuspid regurgitation, and borderline evidence for pulmonary hypertension. Cardiology consulted and patient maintained on Cardizem drip pending KLAUS-guided cardioversion which was successfully done on 11/09/17. Cardiology reinstated Sotalol at 120mg BID; received 5 doses prior to discharge with no QTc prolongation or loss of NSR. Pt symptomatically improved and otherwise stable. Discharging on Sotalol 120mg BID & Eliquis 5mg BID. Expected cardiology OP follow up in 2-3 weeks. Holding Lasix pending further eval by PCP/Cardio. Discharge discussed with: patient - Time Spent with Patient Total time spent providing and/or coordinating discharge services: - Discharge Medications Prescriptions: Sotalol [Betapace] 120 mg PO Q12HR 30 Days #90 tablet Apixaban [Eliquis] 5 mg PO BID #60 tablet Levothyroxine [Synthroid] 25 mcg PO DAILY@0630 #30 tablet Home Medications: Armodafinil [Nuvigil] 200 mg PO BID 02/14/16 [History] Aspirin Enteric Coated [Aspirin EC] 325 mg PO DAILY 02/14/16 [History] Buspirone HCl [Buspar] 10 mg PO DAILY 02/14/16 [History] Calcium Carbonate/Vitamin D3 [Calcium 600 + Vit D Tablet] 1 each PO DAILY [History] Cetirizine HCl [Zyrtec] 10 mg PO DAILY 02/14/16 [History] Docusate [Colace] 100 mg PO BID 02/14/16 [History] Hydroxychloroquine [Plaquenuil] 200 mg PO BID 02/14/16 [History] Lisinopril [Zestril] 40 mg PO DAILY 02/14/16 [History] Morphine Sulfate SR (12 HR) [MS Contin] 60 mg PO Q12HR 02/14/16 [History] Multivitamin [One Daily Essential] 1 each PO DAILY 02/14/16 [History] Omeprazole [PriLOSEC] 20 mg PO BID 02/14/16 [History] OxyCODONE/APAP 10/325 [Percocet 10/325 MG] 1 each PO Q6HR PRN 02/14/16 [History] Polyethylene Glycol 3350 [MiraLAX] 17 gm PO DAILY PRN 02/14/16 [History] Testosterone [Androgel] 4 appl TD DAILY 02/14/16 [History] Tizanidine HCl 4 mg PO Q8H PRN 02/14/16 [History] hydroCHLOROthiazide [Hydrochlorothiazide] 25 mg PO BID 02/14/16 [History] Citalopram Hydrobromide [Citalopram HBr] 40 mg PO DAILY 11/07/17 [History] Apixaban [Eliquis] 5 mg PO BID #60 tablet 11/09/17 [Rx] Levothyroxine [Synthroid] 25 mcg PO DAILY@0630 #30 tablet 11/11/17 [Rx] Sotalol [Betapace] 120 mg PO Q12HR 30 Days #90 tablet 11/11/17 [Rx] Allergies/Adverse Reactions: 3 Allergy/AdvReac Type Severity Reaction Status Date / Time baclofen AdvReac Nausea Verified 11/07/17 10:54 Date of admission: 11/06/17 23:17 Primary care physician: Bubba Fall MD Discharging clinician: Zak Ruano Anticipated date of discharge: 11/11/17 - Constitutional Vitals: Temp Pulse Resp BP Pulse Ox 97.5 F L 60 17 142/73 97 11/11/17 07:56 11/11/17 07:56 11/11/17 07:56 11/11/17 07:56 11/11/17 07:56 CONSTITUTIONAL: Alert and oriented X3, well-nourished, well appearing, in no apparent distress, seated at bedside chair HEAD: Normocephalic; atraumatic. EYES: PER, no scleral icterus, no drainage, no conjunctival injection ENT: oropharynx pink/moist. The nose is normal in appearance without rhinorrhea RESP: NRD without use of accessory musculature, CTA b/l with no wheezes/rales/ rhonchi CARD: RRR, without murmurs, rubs, or gallop ABD: grossly normal, soft, non-tender, no guarding/distention/rigidity SKIN: normal appearance, no pallor/diaphoresis,mottling,jaundice,cyanosis EXT: Rad pulses 2+ and symmetrical; 1+ symmetrical LE edema PSYCH: normal mood and affect - Patient Status Disposition: Home, Self-Care Condition: Good Functional capacity at discharge: independent ambulation Overall status at discharge: patient is back to baseline - Discharge Instructions Instructions: Apixaban (By mouth), Atrial Fibrillation (DC) Follow Up With: Bubba Fall MD [Primary Care Provider] - 11/17/17 9:45 am [facility] [Provider Group] (Verify OP follow up appt time; schedule within next 1-2 weeks if not scheduled.) Forms: ED Satisfaction Letter - Diet and Activity Activity: increase activity as tolerated Diet: low salt diet - VTE Documentation of Mechanical Device: Intermittent pneumatic compression device <Ace Fernando T - Last Filed: 11/11/17 15:42> Orders not resulted at time of discharge: Pending orders 11/12/17 04:00 BMP [Basic Metabolic Panel] AM 0400 Complete Blood Count [HEME] AM 0400 11/12/17 06:00 ECG 12 lead ECG [ECG] AM 0600 Date of Encounter: 11/11/17 - Discharge Diagnosis (1) Atrial fibrillation with RVR Status: Acute (2) Hypertension Status: Chronic Qualifiers: Hypertension type: essential hypertension Qualified Code(s): I10 - Essential (primary) hypertension (3) Chronic back pain Status: Acute Qualifiers: Back pain location: back pain in unspecified location Back pain laterality : unspecified Qualified Code(s): M54.9 - Dorsalgia, unspecified; G89.29 - Other chronic pain; G89.29 - Other chronic pain (4) KRYSTAL (obstructive sleep apnea) Status: Acute (5) Elevated TSH Status: Acute Hospital course: Mr. Stevenson is a 67 year old male - Time Spent with Patient Total time spent providing and/or coordinating discharge services: Greater than 30 minutes Date of admission: 11/06/17 23:17 Primary care physician: Bubba Fall MD - Constitutional Vitals: Temp Pulse Resp BP Pulse Ox 97.5 F L 69 18 142/67 94 11/11/17 11:07 11/11/17 11:07 11/11/17 11:07 11/11/17 11:07 11/11/17 11:07 - Attending Attestation I examined this patient and my medical decision-making was reviewed with the Resident Physician. I agree with the documented findings, disposition and treatment plan as described except to the extent set forth below. 67-year-old male with atrial fibrillation, morbid obesity, obstructive sleep apnea was admitted for management of atrial fibrillation with rapid ventricular response. Seen and evaluated at the bedside, ambulatory on the floors, sitting out of bed to chair, No new complaints. Physical examination unremarkable. Labs and Imaging reviewed Patient may be discharged home on current medications,after last dose of Sotalol this p.m, if EKG shows stable QRS. Rest of details as in the resident physicians documentation.
[2017-11-11] MEDS: hydroCHLOROthiazide 25 MG TABLET PO SCH ×2 (13:19→17:45)
[2017-11-11 16:04] VITALS: BP 140/78
--- NOTE | 2017-11-11 16:15 | Electrocardiograph Report ---
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
--- NOTE | 2017-11-12 10:01 | Electrocardiograph Report ---
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
== END 2017-11-11 19:12 | disposition home or self-care (01) | DRG 310 ==
LOC: EMEROO 20:36 → 2NENU 20:36 → SUATTDRO 23:17 → 2NENU 23:23
PROVIDERS: ADMIT Internal Medicine; ATTEND Internal Medicine